=== PATIENT | female | born 1960 | race Caucasian/White ===

== ENCOUNTER 2020-11-20 10:49 | Observation (INO) ==
[2020-11-20] MEDS ORDERED: ALBUT/IPRATROP 3MG/0.5MG NEB 3 ML VIAL NEB ONE (11:26)
[2020-11-20] MEDS ORDERED: methylPREDNISolone 125 MG/2 ML VIAL IV STA (11:26)
[2020-11-20] MEDS ORDERED: NALOXONE HCL 0.4 MG/1 ML VIAL/CARP IV STA (11:26)
[2020-11-20] MEDS ORDERED: NALOXONE HCL 5 MG in 0.9 % SODIUM CHLORIDE 100 ML IV STA (11:49)
[2020-11-20] MEDS ORDERED: STAT IV Infusion **Titration per Protocol STA (12:05)
[2020-11-20] MEDS ORDERED: NALOXONE HCL 5 MG in 0.9 % SODIUM CHLORIDE 87.5 ML IV SCH ×2 (12:15→19:00)
[2020-11-20 12:16] LABS: Basophils # (auto) 0.03 K/uL (0-0.2); Basophils % (auto) 0.2 %; Eosinophils # (auto) 0.06 K/uL (0-0.5); Eosinophils % (auto) 0.3 %; Hemoglobin 15.3 g/dL (12.0-16.0); Immature Granulocytes # (auto) 0.05 K/uL (0.00-0.02); Immature Granulocytes % (auto) 0.3 %; Lymphocytes # (auto) 0.51 K/uL (1.2-3.4); Lymphocytes % (auto) 2.8 %; Mean Corpuscular Hemoglobin 30.5 pg (25-34); Mean Corpuscular Hgb Conc 32.6 g/dL (32-36); Mean Corpuscular Volume 93.8 fL (80-100); Mean Platelet Volume 11.3 fL (7.4-10.4); Monocytes % (auto) 6.6 %; Neutrophils # (auto) 16.32 K/uL (1.4-6.5); Neutrophils % (auto) 89.8 %; Platelet Count 292 K/uL (130-400); RDW Coefficient of Variation 15.2 % (11.5-14.5); RDW Standard Deviation 51.9 fL (36.4-46.3); Red Blood Count 5.01 M/uL (4.2-5.4); White Blood Count 18.17 K/uL (4.8-10.8)
--- NOTE | 2020-11-20 12:44 | XRay Report ---
SINGLE VIEW CHEST CLINICAL HISTORY: Atypical chest pain. FINDINGS: 2 AP, portable, upright chest radiographs are obtained. No prior studies are available for comparison at the time of dictation. The examination is degraded by portable technique and patient ro tation. The cardiomediastinal silhouette is unremarkable noting atherosclerotic calcification of the thoracic aorta. Patchy airspace consolidation is present at both lung bases, right greater than left . No large pleural effusion or pneumothorax is seen. The skeletal structures are osteopenic. The bony thorax is grossly intact. An intrathecal lead projects over the mid thoracic spine. IMPRESSION: There is bibasilar airspace consolidation, right greater than left. Correlate clinically for evidence of pneumonia/aspiration pneumonitis. Radiographic follow-up to resolution is recommended . ACT 112: Negative or not required by law. Electronically signed by: Fransisco Jarrett M.D. 11/20/2020 12:42 PM
[2020-11-20] MEDS ORDERED: NALOXONE HCL 0.4 MG/1 ML VIAL/CARP IV ONE (12:49)
[2020-11-20 12:56] LABS: Amphetamines+Metham, Urine Neg (Neg); Barbiturates, Urine Neg (Neg); Benzodiazepine, Urine Neg (Neg); Cocaine, Urine Neg (Neg); MDMA (Ecstacy), Urine Neg (Neg); Methadone, Urine Neg (Neg); Opiate, Urine Pos (Neg); Phencyclidine, Urine Neg (Neg)
[2020-11-20 13:40] LABS: Alanine Aminotransferase 43 U/L (12-78); Albumin Globulin Ratio 0.7 (0.9-2); Albumin Level 3.1 gm/dl (3.4-5.0); Alkaline Phosphatase 90 U/L (45-117); Aspartate Aminotransferase 162 U/L (15-37); BUN Creatinine Ratio 23.2 (10-20); Bilirubin,Total 0.4 mg/dl (0.2-1); Blood Urea Nitrogen 52 mg/dl (7-18); Calcium 8.8 mg/dl (8.5-10.1); Carbon Dioxide 25 mmol/L (21-32); Chloride 104 mmol/L (98-107); Creatinine Clr Calc Pharmacy 29.9 ml/min; Est GFR (African American) 26.7 ml/min; Globulin 4.5 gm/dl (2.5-4.0); Glucose 412 mg/dl (70-99); Lipase 140 U/L (73-393); Potassium 5.2 mmol/L (3.5-5.1); Sodium 138 mmol/L (136-145); Total Protein 7.6 gm/dl (6.4-8.2); Troponin I < 0.015 ng/ml (0-0.045)
[2020-11-20] MEDS ORDERED: SODIUM CHLORIDE 0.9% 1000ML 1,000 ML IV ONE (13:44)
[2020-11-20] MEDS ORDERED: NovoLIN-R INSULIN PER UNIT CHARGE IV STA (13:46)
[2020-11-20 13:54] LABS: Beta-Hydroxybutyrate 1.51 mg/dl (0.2-2.81)
--- NOTE | 2020-11-20 13:56 | Emergency Department Note ---
Impression & Plan Opioid overdose, Chronic pain, Type 2 diabetes mellitus with insulin therapy, Hyperkalemia, Multifocal pneumonia ED Provider Note NAME: DAMION FLORES AGE: 60 SEX: F : 1960 ARRIVES VIA: Ambulance INFORMANT: Patient, ED PROVIDER(S): Eric Lau MD CHIEF COMPLAINT: multiple falls, falling asleep HPI: This 60-year-old female who is in town visiting friends. Friends report yesterday they were concerned because [place] and kept falling [place] on benches. The patient was found next to a bed today. Patient's friends were again concerned that the patient was unable to wake up. EMS was summoned who brought the patient to the emergency department upon arrival to the emergency department patient is hypoxic and is satting 89% on room air. She is currently sleeping at the time of physical examination. The patient does wake up however immediately falls back to sleep. ROS: See above HPI for pertinent positives & negatives. A total of 10 systems reviewed and were otherwise negative. PAST MEDICAL HISTORY: See Below PAST SURGICAL HISTORY: See Below FAMILY HISTORY: See Below SOCIAL HISTORY: See Below HOME MEDICATIONS: See Below ALLERGIES: See Below VITALS: See Below PHYSICAL EXAMINATION: VITAL SIGNS - Vital signs and nursing notes were reviewed. GENERAL - 60-year-old female appearing stated age who is in moderate distress. Obtunded and belly breathing SKIN - Without rashes. HEAD - NC/AT. EYES - PERRL with EOMI bilaterally. Sclera anicteric. Palpebral conjunctiva pink and moist with no injection noted. EARS - No deformities of external structures noted on gross examination bilaterally. NOSE - Midline and without cyanosis. No epistaxis or purulent drainage noted. Septum midline without deviation or septal hematoma noted. MOUTH/OROPHARYNX - Without perioral cyanosis. Buccal mucosa pink and moist and without leukoplakia. Tongue midline with equal elevation of palate bilaterally. No tonsillar hypertrophy, erythema, or exudates noted. NECK - Neck with FROM. Supple to palpation. LUNGS - Chest wall symmetric without accessory muscle use, intercostals retractions, or central cyanosis. Normal vesicular breath sounds CTA B/L. No wheezes, rales, or rhonchi appreciated. CARDIAC - RRR with S1/S2. No murmur, rubs, or gallops appreciated. ABDOMEN - Abdominal contour without pulsations or visible masses. BS normoactive all four quadrants. No tenderness, palpable masses, hepatosplenomegaly, or ascites noted. EXTREMITIES - No clubbing or peripheral cyanosis. No pretibial edema present. +3/5 radial, posterior tibial, and dorsalis pedis pulses palpated throughout. +5/5 strength noted in UE/LE bilaterally. NEUROLOGIC - Cranial nerves II through XII grossly intact. Sensory intact to light touch throughout. Patellar reflexes +2/4. PSYCH - Pt awakens to painful stimuli but immediately falls back to sleep MEDICAL DECISION MAKING: Patient was seen and evaluated as above in room C1. Review was performed of nursing notes and vital signs. I did review pertinent previous visits and patient history. After obtaining a thorough history and physical examination the above work up was performed. This 60-year-old female who is on morphine for pain who presents to the emergency department obtunded. The patient is being worked up for narcolepsy however she immediately responded to Narcan. I do feel that the patient has somehow overdosed on her narcotics. She was placed on a Narcan drip because the patient continued to require oxygen. In addition she has an elevation in her glucose her potassium as well as her white blood cell count her creatinine is also elevated. She was given a normal saline bolus here as well as insulin and hour-long breathing treatment. I did discuss the case with the medicine service who did agree to meet the patient. An order was placed for continuous cardiac monitoring. The monitor shows a rate of 93 with Normal Sinus rhythm. The patient was evaluated during a period of high volume and high acuity during the global COVID-19 pandemic, and that diagnosis was suspected/considered upon their initial presentation. Their evaluation, treatment and testing was consistent with current guidelines for patients who present with complaints or symptoms that may be related to COVID-19. Patient was seen while provider was wearing PPE. Triage Nursing notes reviewed. Prior medical records reviewed Vital Signs: reviewed and remarkable for no significant abnormalities Differential diagnosis: Infection, dehydration, metabolic abnormality, hypo/hyperglycemia, electrolyte disturbance, anemia, hypoxia, cardiac sources, intracerebral event, toxicologic, neurologic, as well as other pathologies. ER treatment provided: See below Diagnostics interpreted by me: ECG: Ventricular paced rhythm QTC is 535 ventricular rate is now [address] elevation or depression no previous EKG to compare to Laboratory studies: As stated above and show below. Imaging studies: See below Consultation(s): Internal Medicine ED COURSE: Procedures: none PDMP:reviewed and no issues Critical Care: I have personally spent greater than 30 minutes of critical care time in the direct management of this patient. This includes bedside care, interpretation of diagnostic studies, and testing, discussion with consultants, patient, and family members, and other required patient management activities. This 30 minutes is in excess of all separately billable procedures. Past Med/Surg History Medical History (Updated 11/21/20 @ 18:39 by Eric Lau MD) CAD (coronary artery disease) Chronic pain GERD (gastroesophageal reflux disease) Type 2 diabetes mellitus with insulin therapy Social History Smoking Status: Unknown if ever smoked Tobacco Type: Cigarettes Hx Substance Use: Yes (unable at this time) Last Used Substance: Unknown Preferred Language: Slovak Communication Ability: Effective Current Living Situation: Alone How many Children do You have: 2 Assistive Devices: Denture - Upper and Denture - Lower Allergies Allergies Allergy/AdvReac Type Severity Reaction Status Date / Time Iodinated Contrast Media Allergy Severe shortness Unverified 11/20/20 13:43 of breath pistachio nut Allergy Severe shortness Unverified 11/20/20 13:43 of breath clarithromycin [From Biaxin] Allergy Verified 11/21/20 14:31 Home Meds Home Medications Medication Instructions Recorded Confirmed aspirin 81 mg tablet,delayed 81 mg PO QAM 11/20/20 11/20/20 release (Aspirin Low Dose) atorvastatin 80 mg tablet (Lipitor) 80 mg PO QAM 11/20/20 11/20/20 duloxetine 60 mg capsule,delayed 60 mg PO HS 11/20/20 11/20/20 release (Cymbalta) ergocalciferol (vitamin D2) 1,250 1,250 mcg PO WK 11/20/20 11/20/20 mcg (50,000 unit) capsule (Vitamin D2) gabapentin 800 mg tablet 800 mg PO TID 11/20/20 11/20/20 (Neurontin) glimepiride 4 mg tablet (Amaryl) 4 mg PO BID 11/20/20 11/20/20 insulin aspart U-100 100 unit/mL 1 sliding scale dose SUBCUT 11/20/20 11/20/20 subcutaneous cartridge (Novolog USEASDIRECTD PenFill U-100 Insulin aspart) isosorbide mononitrate 30 mg 30 mg PO HS 11/20/20 11/20/20 tablet,extended release 24 hr lisinopril 2.5 mg tablet (Zestril) 2.5 mg PO HS 11/20/20 11/20/20 magnesium oxide 400 mg PO HS 11/20/20 11/20/20 metoprolol succinate 50 mg 50 mg PO QAM 11/20/20 11/20/20 tablet,extended release 24 hr (Toprol XL) morphine 15 mg immediate release See Rx Instructions .ROUTE .COMPLEX 11/20/20 11/20/20 tablet morphine 15 mg tablet,extended See Rx Instructions .ROUTE .COMPLEX 11/20/20 11/20/20 release (MS Contin) pantoprazole 40 mg tablet,delayed 40 mg PO BID 11/20/20 11/20/20 release (Protonix) potassium chloride 10 mEq 10 meq PO QAM 11/20/20 11/20/20 capsule,extended release torsemide 20 mg tablet 20 mg PO DAILY PRN 11/20/20 11/20/20 Previous Rx's Medication Instructions Recorded doxycycline hyclate 100 mg capsule 100 mg PO BID 14 Days #28 cap 11/21/20 Results & Data (ED) Vital Signs Vital Signs - 24 hr 11/20/20 11:00 11/20/20 11:04 11/20/20 11:30 Temperature 37.0 C Temperature Source Oral Pulse Rate 92 H 91 H 92 H Pulse Rate [Right Finger] Pulse Rate from SpO2 Sensor 91 H 92 H Respiratory Rate 18 16 15 Respiratory Effort / Characteristics Blood Pressure 163/76 H 163/76 H 162/102 H Blood Pressure Mean 105 105 122 Pulse Oximetry 93 82 L 93 Oxygen Delivery Method Room Air Oxygen Flow Rate Sepsis Recent Fever Within 48 Hours No Sepsis New/Unexplained Change in Mental Status N/A Sepsis Action Taken by Nursing No Action Required 11/20/20 11:49 11/20/20 12:00 11/20/20 12:22 Temperature Temperature Source Pulse Rate 98 H 91 H Pulse Rate [Right Finger] 93 H Pulse Rate from SpO2 Sensor 91 H Respiratory Rate 21 25 H 25 H Respiratory Effort / Characteristics Spontaneous Blood Pressure 180/99 H Blood Pressure Mean 126 Pulse Oximetry 96 95 89 L Oxygen Delivery Method Nasal Cannula Room Air Oxygen Flow Rate 2 Sepsis Recent Fever Within 48 Hours Sepsis New/Unexplained Change in Mental Status Sepsis Action Taken by [facility] Medications Current Medication List: was personally reviewed by Laboratory Data Attestation: I reviewed the patient's lab results. Result diagrams: 11/21/20 07:49 11/21/20 07:49 Lab Results 11/20/20 11/20/20 11/20/20 Range/Units 11:58 11:58 11:58 WBC 18.17 H (4.8-10.8) K/uL RBC 5.01 (4.2-5.4) M/uL Hgb 15.3 (12.0-16.0) g/dL Hct 47.0 (37-47) % MCV 93.8 (80-100) fL MCH 30.5 (25-34) pg MCHC 32.6 (32-36) g/dL RDW Std Deviation 51.9 H (36.4-46.3) fL RDW Coeff of Jairo 15.2 H (11.5-14.5) % Plt Count 292 (130-400) K/uL MPV 11.3 H (7.4-10.4) fL Immature Gran % (Auto) 0.3 % Neut % (Auto) 89.8 % Lymph % (Auto) 2.8 % [place] % (Auto) 6.6 % Eos % (Auto) 0.3 % Baso % (Auto) 0.2 % Neut # (Auto) 16.32 H (1.4-6.5) K/uL Lymph # (Auto) 0.51 L (1.2-3.4) K/uL [place] # (Auto) 1.20 H (0.11-0.59) K/uL Eos # (Auto) 0.06 (0-0.5) K/uL Baso # (Auto) 0.03 (0-0.2) K/uL Immature Gran # (Auto) 0.05 H (0.00-0.02) K/uL APTT Cancelled PTT Ratio Cancelled VBG pH (7.36-7.41) VBG pCO2 (38-50) mmHg VBG pO2 mmHg VBG HCO3 mmol/L VBG O2 Saturation % VBG Base Excess mEq/L Barometric Pressure mm/Hg Sodium 138 (136-145) mmol/L Potassium 5.2 H (3.5-5.1) mmol/L Chloride 104 (98-107) mmol/L Carbon Dioxide 25 (21-32) mmol/L Anion Gap 9.0 (3-11) BUN 52 H (7-18) mg/dl Creatinine 2.23 H (0.6-1.2) mg/dl Est Cr Clr Drug Dosing 29.9 ml/min Est GFR ( Amer) 26.7 ml/min Est GFR (Non-Af Amer) 23.0 ml/min BUN/Creatinine Ratio 23.2 H (10-20) Glucose 412 H* (70-99) mg/dl Calcium 8.8 (8.5-10.1) mg/dl Total Bilirubin 0.4 (0.2-1) mg/dl AST 162 H (15-37) U/L ALT 43 (12-78) U/L Alkaline Phosphatase 90 (45-117) U/L Troponin I < 0.015 (0-0.045) ng/ml Total Protein 7.6 (6.4-8.2) gm/dl Albumin 3.1 L (3.4-5.0) gm/dl Globulin 4.5 H (2.5-4.0) gm/dl Albumin/Globulin Ratio 0.7 L (0.9-2) Lipase 140 (73-393) U/L Beta-Hydroxybutyric Acd 1.51 (0.2-2.81) mg/dl Urine Color Urine Appearance (Clear) Urine pH (4.5-7.5) Ur Specific [place] (1.000-1.030) Urine Protein (Negative) Urine Glucose (UA) (Negative) Urine Ketones (Negative) Urine Blood (Negative) Urine Nitrite (Negative) Urine Bilirubin (Negative) Urine Urobilinogen (Negative) Ur Leukocyte Esterase (Negative) Urine WBC (Auto) (0-5) /hpf Urine RBC (Auto) (0-4) /hpf U Hyaline Cast (Auto) (0-5) /lpf U Epithel Cells (Auto) (0-5) /lpf Urine Bacteria (Auto) (Negative) Urine Yeast (None Prsent) Urine Opiates Screen (Neg) Ur Methadone, Qual (Neg) Urine Barbiturates (Neg) Ur Phencyclidine (PCP) (Neg) U Amphetamin/Meth Scrn (Neg) MDMA (Ecstasy) Screen (Neg) U Benzodiazepines Scrn (Neg) Ur Cocaine Metabolite (Neg) U Marijuana (THC) Screen (Neg) Ethyl Alcohol mg/dL (0-3) mg/dl COVID-19 Eval Order SARS-CoV-2 (PCR) (Negative) Bld Cult Staph aureus PCR (Negative) Blood Culture MRSA PCR (Negative) 11/20/20 11/20/20 11/20/20 Range/Units 12:00 12:00 12:23 WBC (4.8-10.8) K/uL RBC (4.2-5.4) M/uL Hgb (12.0-16.0) g/dL Hct (37-47) % MCV (80-100) fL MCH (25-34) pg MCHC (32-36) g/dL RDW Std Deviation (36.4-46.3) fL RDW Coeff of Jairo (11.5-14.5) % Plt Count (130-400) K/uL MPV (7.4-10.4) fL Immature Gran % (Auto) % Neut % (Auto) % Lymph % (Auto) % [place] % (Auto) % Eos % (Auto) % Baso % (Auto) % Neut # (Auto) (1.4-6.5) K/uL Lymph # (Auto) (1.2-3.4) K/uL [place] # (Auto) (0.11-0.59) K/uL Eos # (Auto) (0-0.5) K/uL Baso # (Auto) (0-0.2) K/uL Immature Gran # (Auto) (0.00-0.02) K/uL APTT PTT Ratio VBG pH (7.36-7.41) VBG pCO2 (38-50) mmHg VBG pO2 mmHg VBG HCO3 mmol/L VBG O2 Saturation % VBG Base Excess mEq/L Barometric Pressure mm/Hg Sodium (136-145) mmol/L Potassium (3.5-5.1) mmol/L Chloride (98-107) mmol/L Carbon Dioxide (21-32) mmol/L Anion Gap (3-11) BUN (7-18) mg/dl Creatinine (0.6-1.2) mg/dl Est Cr Clr Drug Dosing ml/min Est GFR ( Amer) ml/min Est GFR (Non-Af Amer) ml/min BUN/Creatinine Ratio (10-20) Glucose (70-99) mg/dl Calcium (8.5-10.1) mg/dl Total Bilirubin (0.2-1) mg/dl AST (15-37) U/L ALT (12-78) U/L Alkaline Phosphatase (45-117) U/L Troponin I (0-0.045) ng/ml Total Protein (6.4-8.2) gm/dl Albumin (3.4-5.0) gm/dl Globulin (2.5-4.0) gm/dl Albumin/Globulin Ratio (0.9-2) Lipase (73-393) U/L Beta-Hydroxybutyric Acd (0.2-2.81) mg/dl Urine Color Urine Appearance (Clear) Urine pH (4.5-7.5) Ur Specific [place] (1.000-1.030) Urine Protein (Negative) Urine Glucose (UA) (Negative) Urine Ketones (Negative) Urine Blood (Negative) Urine Nitrite (Negative) Urine Bilirubin (Negative) Urine Urobilinogen (Negative) Ur Leukocyte Esterase (Negative) Urine WBC (Auto) (0-5) /hpf Urine RBC (Auto) (0-4) /hpf U Hyaline Cast (Auto) (0-5) /lpf U Epithel Cells (Auto) (0-5) /lpf Urine Bacteria (Auto) (Negative) Urine Yeast (None Prsent) Urine Opiates Screen (Neg) Ur Methadone, Qual (Neg) Urine Barbiturates (Neg) Ur Phencyclidine (PCP) (Neg) U Amphetamin/Meth Scrn (Neg) MDMA (Ecstasy) Screen (Neg) U Benzodiazepines Scrn (Neg) Ur Cocaine Metabolite (Neg) U Marijuana (THC) Screen (Neg) Ethyl Alcohol mg/dL < 3.0 (0-3) mg/dl COVID-19 Eval Order Covid19 at [facility] SARS-CoV-2 (PCR) NEGATIVE (Negative) Bld Cult Staph aureus PCR (Negative) Blood Culture MRSA PCR (Negative) 11/20/20 11/20/20 11/20/20 Range/Units 12:23 12:23 15:33 WBC (4.8-10.8) K/uL RBC (4.2-5.4) M/uL Hgb (12.0-16.0) g/dL Hct (37-47) % MCV (80-100) fL MCH (25-34) pg MCHC (32-36) g/dL RDW Std Deviation (36.4-46.3) fL RDW Coeff of Jairo (11.5-14.5) % Plt Count (130-400) K/uL MPV (7.4-10.4) fL Immature Gran % (Auto) % Neut % (Auto) % Lymph % (Auto) % [place]t % (Auto) % Eos % (Auto) % Baso % (Auto) % Neut # (Auto) (1.4-6.5) K/uL Lymph # (Auto) (1.2-3.4) K/uL [place] # (Auto) (0.11-0.59) K/uL Eos # (Auto) (0-0.5) K/uL Baso # (Auto) (0-0.2) K/uL Immature Gran # (Auto) (0.00-0.02) K/uL APTT PTT Ratio VBG pH 7.26 L (7.36-7.41) VBG pCO2 56 H (38-50) mmHg VBG pO2 41 mmHg VBG HCO3 25 mmol/L VBG O2 Saturation 72.6 % VBG Base Excess -3.5 mEq/L Barometric Pressure 729.9 mm/Hg Sodium (136-145) mmol/L Potassium (3.5-5.1) mmol/L Chloride (98-107) mmol/L Carbon Dioxide (21-32) mmol/L Anion Gap (3-11) BUN (7-18) mg/dl Creatinine (0.6-1.2) mg/dl Est Cr Clr Drug Dosing ml/min Est GFR ( Amer) ml/min Est GFR (Non-Af Amer) ml/min BUN/Creatinine Ratio (10-20) Glucose (70-99) mg/dl Calcium (8.5-10.1) mg/dl Total Bilirubin (0.2-1) mg/dl AST (15-37) U/L ALT (12-78) U/L Alkaline Phosphatase (45-117) U/L Troponin I (0-0.045) ng/ml Total Protein (6.4-8.2) gm/dl Albumin (3.4-5.0) gm/dl Globulin (2.5-4.0) gm/dl Albumin/Globulin Ratio (0.9-2) Lipase (73-393) U/L Beta-Hydroxybutyric Acd (0.2-2.81) mg/dl Urine Color Yellow Urine Appearance Clear (Clear) Urine pH 5.0 (4.5-7.5) Ur Specific [place] 1.019 (1.000-1.030) Urine Protein 1+ H (Negative) Urine Glucose (UA) 3+ H (Negative) Urine Ketones Negative (Negative) Urine Blood 3+ H (Negative) Urine Nitrite Negative (Negative) Urine Bilirubin Negative (Negative) Urine Urobilinogen Negative (Negative) Ur Leukocyte Esterase Negative (Negative) Urine WBC (Auto) 1-5 (0-5) /hpf Urine RBC (Auto) 0-4 (0-4) /hpf U Hyaline Cast (Auto) 1-5 (0-5) /lpf U Epithel Cells (Auto) >30 H (0-5) /lpf Urine Bacteria (Auto) Negative (Negative) Urine Yeast Budding A (None Prsent) Urine Opiates Screen Pos H (Neg) Ur Methadone, Qual Neg (Neg) Urine Barbiturates Neg (Neg) Ur Phencyclidine (PCP) Neg (Neg) U Amphetamin/Meth Scrn Neg (Neg) MDMA (Ecstasy) Screen Neg (Neg) U Benzodiazepines Scrn Neg (Neg) Ur Cocaine Metabolite Neg (Neg) U Marijuana (THC) Screen Neg (Neg) Ethyl Alcohol mg/dL (0-3) mg/dl COVID-19 Eval Order SARS-CoV-2 (PCR) (Negative) Bld Cult Staph aureus PCR (Negative) Blood Culture MRSA PCR (Negative) 11/20/20 Range/Units 15:33 WBC (4.8-10.8) K/uL RBC (4.2-5.4) M/uL Hgb (12.0-16.0) g/dL Hct (37-47) % MCV (80-100) fL MCH (25-34) pg MCHC (32-36) g/dL RDW Std Deviation (36.4-46.3) fL RDW Coeff of Jairo (11.5-14.5) % Plt Count (130-400) K/uL MPV (7.4-10.4) fL Immature Gran % (Auto) % Neut % (Auto) % Lymph % (Auto) % [place] % (Auto) % Eos % (Auto) % Baso % (Auto) % Neut # (Auto) (1.4-6.5) K/uL Lymph # (Auto) (1.2-3.4) K/uL [place] # (Auto) (0.11-0.59) K/uL Eos # (Auto) (0-0.5) K/uL Baso # (Auto) (0-0.2) K/uL Immature Gran # (Auto) (0.00-0.02) K/uL APTT PTT Ratio VBG pH (7.36-7.41) VBG pCO2 (38-50) mmHg VBG pO2 mmHg VBG HCO3 mmol/L VBG O2 Saturation % VBG Base Excess mEq/L Barometric Pressure mm/Hg Sodium (136-145) mmol/L Potassium (3.5-5.1) mmol/L Chloride (98-107) mmol/L Carbon Dioxide (21-32) mmol/L Anion Gap (3-11) BUN (7-18) mg/dl Creatinine (0.6-1.2) mg/dl Est Cr Clr Drug Dosing ml/min Est GFR ( Amer) ml/min Est GFR (Non-Af Amer) ml/min BUN/Creatinine Ratio (10-20) Glucose (70-99) mg/dl Calcium (8.5-10.1) mg/dl Total Bilirubin (0.2-1) mg/dl AST (15-37) U/L ALT (12-78) U/L Alkaline Phosphatase (45-117) U/L Troponin I (0-0.045) ng/ml Total Protein (6.4-8.2) gm/dl Albumin (3.4-5.0) gm/dl Globulin (2.5-4.0) gm/dl Albumin/Globulin Ratio (0.9-2) Lipase (73-393) U/L Beta-Hydroxybutyric Acd (0.2-2.81) mg/dl Urine Color Urine Appearance (Clear) Urine pH (4.5-7.5) Ur Specific [place] (1.000-1.030) Urine Protein (Negative) Urine Glucose (UA) (Negative) Urine Ketones (Negative) Urine Blood (Negative) Urine Nitrite (Negative) Urine Bilirubin (Negative) Urine Urobilinogen (Negative) Ur Leukocyte Esterase (Negative) Urine WBC (Auto) (0-5) /hpf Urine RBC (Auto) (0-4) /hpf U Hyaline Cast (Auto) (0-5) /lpf U Epithel Cells (Auto) (0-5) /lpf Urine Bacteria (Auto) (Negative) Urine Yeast (None Prsent) Urine Opiates Screen (Neg) Ur Methadone, Qual (Neg) Urine Barbiturates (Neg) Ur Phencyclidine (PCP) (Neg) U Amphetamin/Meth Scrn (Neg) MDMA (Ecstasy) Screen (Neg) U Benzodiazepines Scrn (Neg) Ur Cocaine Metabolite (Neg) U Marijuana (THC) Screen (Neg) Ethyl Alcohol mg/dL (0-3) mg/dl COVID-19 Eval Order SARS-CoV-2 (PCR) (Negative) Bld Cult Staph aureus PCR Negative (Negative) Blood Culture MRSA PCR Negative (Negative) Administered Medications Discontinued Medications Albuterol (Albut/Ipratrop 3mg/0.5mg Neb 3 Ml Vial) 12 ml NEB ONE ONE Stop: 11/20/20 11:27 Last Admin: 11/20/20 12:22 Dose: 12 ml Documented by: [id number] Atorvastatin Calcium (Atorvastatin 40 Mg Tab) 80 mg PO QAM [facility] Stop: 12/21/20 08:59 Last Admin: 11/21/20 08:41 Dose: 80 mg Documented by: [id number] Doxycycline Hyclate (Doxycycline Hyclate 100 Mg Cap) 100 mg PO NOW STA Stop: 11/21/20 15:12 Last Admin: 11/21/20 15:36 Dose: 100 mg Documented by: [id number] Duloxetine HCl (Duloxetine Hcl 60 Mg Cap) 60 mg PO HS [facility] Stop: 12/20/20 20:59 Last Admin: 11/20/20 21:17 Dose: Not Given Documented by: [id number] Gabapentin (Gabapentin 800 Mg Tab) 800 mg PO TID [facility] Stop: 12/21/20 13:59 Last Admin: 11/21/20 15:36 Dose: 800 mg Documented by: [id number] Admin: 11/21/20 10:10 Dose: 800 mg Documented by: [id number] Heparin Sodium (Porcine) (Heparin Sod 5,000 Unit/0.5 Ml Vial) 5,000 units SQ Q12 [facility] Stop: 12/20/20 20:59 Last Admin: 11/21/20 08:41 Dose: 5,000 units Documented by: [id number] Admin: 11/20/20 21:24 Dose: 5,000 units Documented by: [id number] Naloxone HCl 5 mg/ Sodium (Chloride) 100 mls @ 2.6 mls/hr IV .Q24H [facility]; Protocol Stop: 12/20/20 12:14 Last Titration: 11/20/20 18:37 Dose: 0 mg/hr, 0 mls/hr Documented by: [id number] Admin: 11/20/20 12:41 Dose: 0.13 mg/hr, 2.6 mls/hr Documented by: [id number] Cosigned by: [id number] Sodium Chloride (Nss 1000ml) 1,000 mls @ 999 mls/hr IV .Q1H1M ONE Stop: 11/20/20 14:44 Last Infusion: 11/20/20 15:45 Dose: 0 mls/hr Documented by: [id number] Admin: 11/20/20 13:56 Dose: 999 mls/hr Documented by: [id number] Levofloxacin/Dextrose (Levaquin/D5w) 750 mg in 150 mls @ 100 mls/hr IV NOW STA Stop: 11/20/20 16:34 Last Infusion: 11/20/20 18:33 Dose: 0 mls/hr Documented by: [id number] Admin: 11/20/20 16:07 Dose: 100 mls/hr Documented by: [id number] Piperacillin Sod/Tazobactam Sod (Zosyn) 4.5 gm in 120 mls @ 240 mls/hr IV NOW ONE Stop: 11/20/20 15:35 Last Infusion: 11/20/20 16:06 Dose: 0 mls/hr Documented by: [id number] Admin: 11/20/20 15:45 Dose: 240 mls/hr Documented by: [id number] Sodium Chloride (Nss 1000ml) 1,000 mls @ 120 mls/hr IV .Q8H20M [facility] Stop: 12/20/20 17:54 Last Admin: 11/21/20 10:47 Dose: 120 mls/hr Documented by: [id number] Infusion: 11/21/20 10:47 Dose: 120 mls/hr Documented by: [id number] Admin: 11/21/20 02:48 Dose: 120 mls/hr Documented by: [id number] Infusion: 11/21/20 02:48 Dose: 120 mls/hr Documented by: [id number] Admin: 11/20/20 18:42 Dose: 120 mls/hr Documented by: [id number] Piperacillin Sod/Tazobactam (Sod 3.375 gm/ Dextrose) 115 mls @ 28.75 mls/hr IV Q8H [facility]; Protocol Stop: 11/27/20 20:59 Last Admin: 11/21/20 13:23 Dose: 28.8 mls/hr Documented by: [id number] Infusion: 11/21/20 08:42 Dose: 0 mls/hr Documented by: [id number] Admin: 11/21/20 04:34 Dose: 28.8 mls/hr Documented by: [id number] Infusion: 11/21/20 00:41 Dose: 0 mls/hr Documented by: [id number] Admin: 11/20/20 21:22 Dose: 28.8 mls/hr Documented by: [id number] Insulin Human Regular 10 units (/ Syringe) 10 mls @ 5 mls/min IV ONE ONE Stop: 11/20/20 19:01 Last Admin: 11/20/20 19:46 Dose: 5 mls/min Documented by: [id number] Cosigned by: [id number] Naloxone HCl 5 mg/ Sodium (Chloride) 100 mls @ 0 mls/hr IV .Q0M [facility]; Protocol Stop: 12/20/20 18:59 Last Titration: 11/20/20 21:17 Dose: 0 mg/hr, 0 mls/hr Documented by: [id number] Admin: 11/20/20 18:00 Dose: 0.13 mg/hr, 2.6 mls/hr Documented by: [id number] Cosigned by: [id number] Insulin Human Regular 250 (units/ Sodium Chloride) 250 mls @ 1.7 mls/hr IV .Q24H [facility]; Protocol Stop: 12/20/20 21:29 Last Titration: 11/21/20 11:21 Dose: 0 units/hr, 0 mls/hr Documented by: [id number] Cosigned by: [id number] Titration: 11/21/20 07:12 Dose: 1.7 units/hr, 1.7 mls/hr Documented by: [id number] Cosigned by: [id number] Titration: 11/21/20 06:04 Dose: 2.1 units/hr, 2.1 mls/hr Documented by: [id number] Cosigned by: [id number] Titration: 11/21/20 05:07 Dose: 2.6 units/hr, 2.6 mls/hr Documented by: [id number] Cosigned by: [id number] Titration: 11/21/20 04:10 Dose: 3.3 units/hr, 3.3 mls/hr Documented by: [id number] Cosigned by: [id number] Titration: 11/21/20 03:24 Dose: 4.1 units/hr, 4.1 mls/hr Documented by: [id number] Cosigned by: [id number] Titration: 11/21/20 02:55 Dose: 0 units/hr, 0 mls/hr Documented by: [id number] Cosigned by: [id number] Titration: 11/21/20 02:02 Dose: 6.9 units/hr, 6.9 mls/hr Documented by: [id number] Cosigned by: [id number] Titration: 11/21/20 00:58 Dose: 8.6 units/hr, 8.6 mls/hr Documented by: [id number] Cosigned by: [id number] Titration: 11/21/20 00:21 Dose: 7.2 units/hr, 7.2 mls/hr Documented by: [id number] Cosigned by: [id number] Titration: 11/20/20 23:04 Dose: 6 units/hr, 6 mls/hr Documented by: [id number] Cosigned by: [id number] Admin: 11/20/20 21:47 Dose: 5 units/hr, 5 mls/hr Documented by: [id number] Cosigned by: [id number] Insulin Aspart (Insulin Aspart 100 Units/Ml 3 Ml Pen) 0 units SC ACHS [facility] Stop: 12/20/20 17:54 Last Admin: 11/20/20 21:31 Dose: Not Given Documented by: [id number] Insulin Aspart (Insulin Aspart 100 Units/Ml 3 Ml Pen) 0 units SC ACHS [facility] Stop: 12/20/20 20:59 Last Admin: 11/21/20 08:38 Dose: Not Given Documented by: [id number] Cosigned by: [id number] Admin: 11/20/20 21:57 Dose: Not Given Documented by: [id number] Insulin Aspart (Insulin Aspart 100 Units/Ml 3 Ml Pen) 0 units SC ACHS [facility] Stop: 12/21/20 11:29 Last Admin: 11/21/20 17:03 Dose: 4 units Documented by: [id number] Cosigned by: [id number] Admin: 11/21/20 13:19 Dose: 300 units Documented by: [id number] Cosigned by: [id number] Insulin Glargine (Insulin Glargine Solostar 100 Units/Ml 3 Ml Pen) 18 units SC QAM [facility] Stop: 12/21/20 07:59 Last Admin: 11/21/20 08:39 Dose: 18 units Documented by: [id number] Cosigned by: [id number] Insulin Human Regular (Novolin-R Insulin Per Unit Charge) 10 units IV NOW STA Stop: 11/20/20 13:47 Last Admin: 11/20/20 13:49 Dose: 10 units Documented by: [id number] Cosigned by: [id number] Isosorbide Mononitrate (Isosorbide Routt Extended Rel 30 Mg Tabcr) 30 mg PO HS [facility] Stop: 12/20/20 20:59 Last Admin: 11/20/20 21:21 Dose: 30 mg Documented by: [id number] Magnesium Oxide (Magnesium Oxide 400 Mg Tab) 400 mg PO [facility] Stop: 12/20/20 20:59 Last Admin: 11/20/20 21:21 Dose: 400 mg Documented by: [id number] Methylprednisolone (Methylprednisolone 125 Mg/2 Ml Vial) 125 mg IV NOW STA Stop: 11/20/20 11:27 Last Admin: 11/20/20 11:49 Dose: 125 mg Documented by: [id number] Metoprolol Succinate (Metoprolol Succ 50mg Ext Rel Tab) 50 mg [place] Stop: 12/21/20 08:59 Last Admin: 11/21/20 08:43 Dose: 50 mg Documented by: [id number] Morphine Sulfate (Morphine Sulfate Cr 15 Mg Tabcr) 15 mg PO Q12 [facility] Stop: 12/05/20 09:29 Last Admin: 11/21/20 09:25 Dose: 15 mg Documented by: [id number] Naloxone HCl (Naloxone Hcl 0.4 Mg/1 Ml Vial/Carp) 0.2 mg IV NOW STA Stop: 11/20/20 11:27 Last Admin: 11/20/20 11:49 Dose: 0.2 mg Documented by: [id number] Naloxone HCl (Naloxone Hcl 0.4 Mg/1 Ml Vial/Carp) 0.1 mg IV .15 MINUTES AFTER.. ONE Stop: 11/20/20 12:50 Last Admin: 11/20/20 12:57 Dose: 0.1 mg Documented by: [id number] Pantoprazole Sodium (Pantoprazole 40 Mg Tab) 40 mg PO BID [facility] Stop: 12/20/20 20:59 Last Admin: 11/21/20 08:41 Dose: 40 mg Documented by: [id number] Admin: 11/20/20 21:22 Dose: 40 mg Documented by: [id number] Potassium Chloride (Potassium Chloride 10 Meq Tabcr) 10 meq PO QAM [facility] Stop: 12/21/20 08:59 Last Admin: 11/21/20 08:40 Dose: 10 meq Documented by: [id number] Imaging Data Radiologist's Impression: Chest X-Ray 11/20/20 11:26 SINGLE VIEW CHEST CLINICAL HISTORY: Atypical chest pain. FINDINGS: 2 AP, portable, upright chest radiographs are obtained. No prior studies are available for comparison at the time of dictation. The examination is degraded by portable technique and patient rotation. The cardiomediastinal silhouette is unremarkable noting atherosclerotic calcification of the thoracic aorta. Patchy airspace consolidation is present at both lung bases, right greater than left. No large pleural effusion or pneumothorax is seen. The skeletal structures are osteopenic. The bony thorax is grossly intact. An intrathecal lead projects over the mid thoracic spine. IMPRESSION: There is bibasilar airspace consolidation, right greater than left. Correlate clinically for evidence of pneumonia/aspiration pneumonitis. Radiographic follow-up to resolution is recommended. ACT 112: Negative or not required by law. Electronically signed by: Fransisco Jarrett M.D. 11/20/2020 12:42 PM Discharge Plan Visit Data Chief Complaint: Fall Stated Complaint: Fall ED Provider: Eric Lau Discharge Problem: Opioid overdose, Chronic pain, Type 2 diabetes mellitus with insulin therapy, Hyperkalemia, Multifocal pneumonia Patient Disposition: Admitted As Inpatient Discharge Instructions Interventions: ED Discharge Assessment Last Done: 11/20/20 17:20 Discharge Problem: Opioid overdose Qualifiers: Encounter type: initial encounter Injury intent: undetermined intent Qualified Code(s): T40.2X4A - Poisoning by other opioids, undetermined, initial encounter Chronic pain Qualifiers: Chronic pain type: other chronic pain Qualified Code(s): G89.29 - Other chronic pain
--- NOTE | 2020-11-20 14:27 | History & Physical Report ---
Date of Service November 20, 2020 Assessment & Plan (1) Altered mental status: Plan: Laura Link is a 60yo F with a PMHx of CAD, HLD, chronic back pain with chronic narcotic tx and implanted back stimulator, insulin depenent DM2, GERD who presents to the ER due to increased somnolence and repeatedly falling asleep in public. By report she has a hx of chronic back pain with stimulator and on home morphine. She was given narcan and placed on a narcan drip in the ER with improvement in her somnolence. Altered Mental Status/Somnolence 2/2 Accidental Narcotic Overdose +/- metabolic encephalopathy of aspiration pneumonia Patient admitted to hospital with reports of multiple falls, falling asleep on benches. H&P limited by extreme somnolence and reduced negative status during exam Medication reconciliation obtained from med Hx external review, some discrepanc ies with patient reported with waxing and waning mental status while on Narcan drip Morphine, gabapentin held doses as noted under back pain - CT-H: There is no hemorrhage, mass effect, or evidence of acute territorial ischemia by CT criteria. Paranasal sinus disease. Small left frontal scalp contusion. - CT-Spine: There is no evidence of fracture or subluxation involving the cervical spine.There is no evidence of fracture or malalignment involving the thoracic spine. There is no evidence of fracture or malalignment involving the lumbar spine. VBG with respiratory acidosis. NIPPV placed Gabapentin level pending Hyperglycemia managed as otherwise noted Ammonia pending, no signs of liver disease on CT, AST elevated Urine tox screen positive for opiates, screen otherwise negative pending confirmatory send out Continue Narcan drip, titrate for respiration protocol. Continue to monitor end-tidal CO2 We will reassess patient for narcotic withdrawal and starting reduced dose of opioids as clinical/cognitive status improves. Given TDD of greater than 50 morphine equivalents daily anticipate baseline tolerance/dependence P.o. meds have been continued 11/21, check for improved mentation and safe swallow prior to given. Temporary n.p.o. order placed. Aspiration precautions (2) CAD (coronary artery disease): Plan: CAD Clarify cardiac history once cognitive status improves. Based of hx of plaavix tx suspect hx PCI - EKG poor quality, repeat pending. - Lisinopril held for BRIGITTE - Continue MTP succinte 50mg qAM - ASA 81mg daily - Continue isosorbide mononitrate 30mg PO qHS Continue statin (3) Multifocal pneumonia: Plan: ?Aspiration PNA - Leukocytosis to 18 on admit - COVID negative, afebrile - CXR: There is bibasilar airspace consolidation, right greater than left. Correlate clinically for evidence of pneumonia/aspiration pneumonitis. Radiographic follow-up to resolution is recommended. - CT-C: There is multifocal patchy/nodular airspace consolidation as detailed above, typical in appearance for multifocal pneumonia. There is no acute posttraumatic intrathoracic abnormality. Clinical correlation will be required and radiographic follow-up to resolution is recommended. Given the nodular appearance, a follow-up chest CT in 3 months time is also recommended for reassessment.There is no pleural effusion or pneumothorax.Cardiomegaly and emphysema. - Lactate pending - Empiric Zosyn and Levaquin in ED. Continue Zosyn for Pseudomonas and anaerobic coverage, MRSA nare pending. If positive add doxycycline for MRSA coverage. - Sputum culture pending (4) Chronic pain: Plan: Chronic Back Pain w/ Implantable Stimulator - [employer] pt takes Morphine ER 15mg 1 tab AM and 2 tabs PM with an additional Morphine 15mg IR 1-2 tabs daily. No benzodiazepines. -Patient somnolent on exam, unable to assess pain at time of HPI - Continue [employer] duloxetine 60mg qHS -Hold gabapentin 800mg PO TID (5) GERD (gastroesophageal reflux disease): Plan: GERD - Protonix 40mg BID [employer] (6) Type 2 diabetes mellitus with insulin therapy: Plan: DM2 - Hyperglycemic to 412 on admit, received NSS bolus and 10u IV insulin regular --> decreased to [] - Hold home glimepiride. Pt on SSI aspart [employer]. Converted to weight based basal- bolus as below - Goal range 100-140 - Glucose checks AC/HS - Basal-bolus, lantus 9u BID, CF 45, Ratio 16 - BMP daily (7) Hyperkalemia: Plan: Hyperkalemia - Insulin regular 10 units IV given for hyperglycemia - NSS 1L bolus given in ER - IVFM 120 cc/h NSS - BMP recheck 4hrs, daily (8) Elevated AST (SGOT): Plan: Elevated AST - ALT normal - AlkPhos normal - CT-Ab/P:There is no evidence of solid organ injury in the abdomen or pelvis on this unenhanced examination. Bladder distention. There is an approximately 10 cm segment of underdistention versus mildly thick-walled ascending colon. Underdistention is favored an clinical correlation will be required. If warranted this could be further assessed with endoscopy on a nonemergent basis. - EtoH negative on admit Plan: DVT PPx: Heparin SQ Q12 Diet: DM/HH once able to swallow safetly. NPO on admit for AMS Dispo: PCU CODE STATUS: Full Code, pt assesnts but limited by sedation on HPI. Unable to reach family members for collateral at time of admission. History of Present Illness Chief Complaint: Falls, AMS Primary Care Provider: NO PCP Laura Link is a 60yo F with a PMHx of CAD, HLD, chronic back pain with chronic narcotic tx and implanted back stimulator, insulin depenent DM2, GERD who presents to the ER due to increased somnolence and repeatedly falling asleep in public. Pt is from out of visiting relatives. She has a hx of chronic back pain with stimulator and on home morphine. She was given narcan and placed on a narcan drip in the ER with improvement in her somnolence. Per pharmacy and external records review: [employer] pt takes Morphine ER 15mg 1 tab AM and 2 tabs PM with an additional Morphine 15mg IR 1-2 tabs daily. No benzodiazepines. Pt also on gabapentin 800mg TID PO and duloxetine 60mg qHS. History extremely limited by sedation/cognitive status Patient is seen at the bedside, has had a waxing and waning cognitive status while in the emergency department. At time of provider assessment patient opens eyes transiently to vigorous shaking and sternal rub, gives grunting answers to questions and is able to verbalize her son is "Ludwin "before falling back asleep. Respirations 19, normal end-tidal CO2. She is on a Narcan drip titrated to respiration. Patient was not able to give phone number for her son Ludwin. When asked if it was okay to call her sister who is listed as her primary contact she replies "okay "before falling at sleep, sister kirill phone rang without answer, no voicemail available. By report patient is from [place] and is visiting friends/family. She was reportedly falling asleep on benches with multiple falls causing her to be brought to the emergency department by emergency medical services. No family/friends at bedside for collateral. While in the emergency department she was given Narcan with improved mentation and then placed on a Narcan drip titrated to respiratory status. She received insulin for hyperglycemia, and a fluid bolus for elevated potassium. CT of the entire spine, head, abdomen and pelvis, and head were all obtained. Results reviewed in assessment and plan, no signs of fracture, intracranial bleed, or solid organ injury. Evidence on CT of multifocal pneumonia. Allergies Allergy/AdvReac Type Severity Reaction Status Date / Time Iodinated Contrast Media Allergy Severe shortness Unverified 11/20/20 13:43 of breath pistachio nut Allergy Severe shortness Unverified 11/20/20 13:43 of breath Home Medications Medication Instructions Recorded Confirmed Type aspirin 81 mg tablet,delayed 81 mg PO QAM 11/20/20 11/20/20 History release (Aspirin Low Dose) atorvastatin 80 mg tablet (Lipitor) 80 mg PO QAM 11/20/20 11/20/20 History duloxetine 60 mg capsule,delayed 60 mg PO HS 11/20/20 11/20/20 History release (Cymbalta) ergocalciferol (vitamin D2) 1,250 1,250 mcg PO WK 11/20/20 11/20/20 History mcg (50,000 unit) capsule (Vitamin D2) gabapentin 800 mg tablet 800 mg PO TID 11/20/20 11/20/20 History (Neurontin) glimepiride 4 mg tablet (Amaryl) 4 mg PO BID 11/20/20 11/20/20 History insulin aspart U-100 100 unit/mL 1 sliding scale dose SUBCUT 11/20/20 11/20/20 History subcutaneous cartridge (Novolog USEASDIRECTD PenFill U-100 Insulin aspart) isosorbide mononitrate 30 mg 30 mg PO HS 11/20/20 11/20/20 History tablet,extended release 24 hr lisinopril 2.5 mg tablet (Zestril) 2.5 mg PO HS 11/20/20 11/20/20 History magnesium oxide 400 mg PO HS 11/20/20 11/20/20 History metoprolol succinate 50 mg 50 mg PO QAM 11/20/20 11/20/20 History tablet,extended release 24 hr (Toprol XL) morphine 15 mg immediate release See Rx Instructions .ROUTE .COMPLEX 11/20/20 11/20/20 History tablet morphine 15 mg tablet,extended See Rx Instructions .ROUTE .COMPLEX 11/20/20 11/20/20 History release (MS Contin) pantoprazole 40 mg tablet,delayed 40 mg PO BID 11/20/20 11/20/20 History release (Protonix) potassium chloride 10 mEq 10 meq PO QAM 11/20/20 11/20/20 History capsule,extended release torsemide 20 mg tablet 20 mg PO DAILY PRN 11/20/20 11/20/20 History Past Med/Surg History Medical History (Updated 11/20/20 @ 16:39 by Kareem Birmingham MD) CAD (coronary artery disease) Chronic pain GERD (gastroesophageal reflux disease) Type 2 diabetes mellitus with insulin therapy Social History Smoking Status: Current every day smoker Tobacco Type: Cigarettes Feels Safe at Home: Yes Review of Systems Review of Systems: Unobtainable due to cognitive status Physical Exam Physical Exam: General: Sedated, arouses to loud voice and vigorous shake/sternal rub before falling back asleep. HEENT: Atraumatic, normocephalic. Left scalp contusion. Pulm: Moderate air movement, coarse without overt rales or wheezes. No belly breathing/accessory muscle use of breathing at time of exam. Cardiac: RRR, -mrg. Radial pulses intact and symmetrical. Abdominal: Nontender, nondistended, soft. BS present. Extremities: Intact. Right ankle with mild contusion, no crepitus or bony abnormality appreciated. Neurologic: Exam limited by sedation/suspected narcosis. Pupils narrowed, responsive to light. No ankle clonus, patellar DTR 2+. Results & Data Results & Data ([facility]) Vital Signs (Past 12 Hours) Vital Signs Temp Pulse Pulse Resp BP Pulse Ox 11/20/20 12:22 93 H 25 H 89 L 11/20/20 12:00 91 H 25 H 180/99 H 95 11/20/20 11:49 98 H 21 96 11/20/20 11:30 92 H 15 162/102 H 93 11/20/20 11:04 37.0 C 91 H 16 163/76 H 82 L 11/20/20 11:00 92 H 18 163/76 H 93 Laboratory Results Abnormal lab results 11/20/20 11/20/20 11/20/20 Range/Units 11:58 11:58 12:23 WBC 18.17 H (4.8-10.8) K/uL RDW Std Deviation 51.9 H (36.4-46.3) fL RDW Coeff of Jairo 15.2 H (11.5-14.5) % MPV 11.3 H (7.4-10.4) fL Neut # (Auto) 16.32 H (1.4-6.5) K/uL Lymph # (Auto) 0.51 L (1.2-3.4) K/uL Dickens # (Auto) 1.20 H (0.11-0.59) K/uL Immature Gran # (Auto) 0.05 H (0.00-0.02) K/uL VBG pH (7.36-7.41) VBG pCO2 (38-50) mmHg Potassium 5.2 H (3.5-5.1) mmol/L BUN 52 H (7-18) mg/dl Creatinine 2.23 H (0.6-1.2) mg/dl BUN/Creatinine Ratio 23.2 H (10-20) Glucose 412 H* (70-99) mg/dl AST 162 H (15-37) U/L Albumin 3.1 L (3.4-5.0) gm/dl Globulin 4.5 H (2.5-4.0) gm/dl Albumin/Globulin Ratio 0.7 L (0.9-2) Urine Opiates Screen Pos H (Neg) 11/20/20 Range/Units 15:33 WBC (4.8-10.8) K/uL RDW Std Deviation (36.4-46.3) fL RDW Coeff of Jairo (11.5-14.5) % MPV (7.4-10.4) fL Neut # (Auto) (1.4-6.5) K/uL Lymph # (Auto) (1.2-3.4) K/uL Dickens # (Auto) (0.11-0.59) K/uL Immature Gran # (Auto) (0.00-0.02) K/uL VBG pH 7.26 L (7.36-7.41) VBG pCO2 56 H (38-50) mmHg Potassium (3.5-5.1) mmol/L BUN (7-18) mg/dl Creatinine (0.6-1.2) mg/dl BUN/Creatinine Ratio (10-20) Glucose (70-99) mg/dl AST (15-37) U/L Albumin (3.4-5.0) gm/dl Globulin (2.5-4.0) gm/dl Albumin/Globulin Ratio (0.9-2) Urine Opiates Screen (Neg) Diagnostic Findings Cervical Spine CT 11/20/20 11:26 CT SCAN OF THE CERVICAL SPINE CLINICAL HISTORY: Trauma. Fall. COMPARISON STUDY: No priors. TECHNIQUE: CT scan of the cervical spine is performed from the skull base to the upper thoracic spine. Images are reviewed in the axial, sagittal, and coronal planes. IV contrast was not administered for this examination. A dose lowering technique was utilized adhering to the principles of ALARA. FINDINGS: Skeletal structures: The skeletal structures are osteopenic. There is no evidence of fracture or subluxation involving the cervical spine. Vertebral body height and alignment are maintained. Anterior osteophytes are seen throughout. The odontoid process and lateral masses are intact. The atlantoaxial roland culation is preserved noting mild productive degenerative change. The spinous processes appear intact. There is mild multilevel facet arthropathy. Intervertebral discs: The disc spaces are maintained. Central canal: Tiny posterior disc osteophyte complexes at C5-C6 and C6-C7 may contribute to mild acquired compromise of the central canal. Soft tissues: The prevertebral and paraspinous soft tissues are within normal limits. There is atherosclerotic calcification of the carotid bulbs. 3 mm low- attenuation nodule is noted in the left lobe of the thyroid. Calvarium: The visualized calvarium at the skull base appears intact. Brain parenchyma: Partially visualized brain parenchyma at the skull base is within normal limits. Sinuses and mastoids: There is mucosal thickening and fluid within the left maxillary antrum. There is a small left mastoid effusion. The right mastoid air cells are well pneumatized. Lung apices: Mild emphysematous change is noted at the apices. IMPRESSION: There is no evidence of fracture or subluxation involving the cervical spine. ACT 112: Negative or not required by law. Electronically signed by: Fransisco Jarrett M.D. 11/20/2020 2:59 PM Chest X-Ray 11/20/20 11:26 SINGLE VIEW CHEST CLINICAL HISTORY: Atypical chest pain. FINDINGS: 2 AP, portable, upright chest radiographs are obtained. No prior studi es are available for comparison at the time of dictation. The examination is degraded by portable technique and patient rotation. The cardiomediastinal silhouette is unremarkable noting atherosclerotic calcification of the thoracic aorta. Patchy airspace consolidation is present at both lung bases, right greater than left. No large pleural effusion or pneumothorax is seen. The skeletal structures are osteopenic. The bony thorax is grossly intact. An intrathecal lead projects over the mid thoracic spine. IMPRESSION: There is bibasilar airspace consolidation, right greater than left. Correlate clinically for evidence of pneumonia/aspiration pneumonitis. Radiographic follow-up to resolution is recommended. ACT 112: Negative or not required by law. Electronically signed by: Fransisco Jarrett M.D. 11/20/2020 12:[address] 11/20/20 11:26 CT SCAN OF THE BRAIN WITHOUT IV CONTRAST CLINICAL HISTORY: Fall. Change in mental status. COMPARISON STUDY: No priors. TECHNIQUE: Unenhanced axial CT scan of the brain is performed from the vertex to the skull base. A dose lowering technique was utilized adhering to the principles of ALARA. FINDINGS: Brain parenchyma: The brain parenchyma is normal in appearance. There is no hemorrhage, mass effect, or evidence of acute territorial ischemia by CT criteria. Lopez-white matter differentiation is preserved. No extra-axial fluid collection is seen. Ventricles, sulci, cisterns: Normal in configuration. Intracranial vasculature: There is atherosclerotic calcification of the cavernous carotid and vertebral arteries. Calvarium: There is no depressed calvarial fracture. Soft tissues: There is a left frontal scalp contusion. Sinuses and mastoids: There is trace mucosal thickening and air-fluid level in the left maxillary antrum. Trace mucosal thickening is noted in the frontal and ethmoid sinuses. The remaining paranasal sinuses are clear. There is trace left mastoid effusion. The right mastoid air cells are well pneumatized. Orbits: The bony orbits are grossly intact. IMPRESSION: 1. There is no hemorrhage, mass effect, or evidence of acute territorial ischemia by CT criteria. 2. Paranasal sinus disease as above. 3. Small left frontal scalp contusion. ACT 112: Negative or not required by law. Electronically signed by: Fransisco Jarrett M.D. 11/20/2020 2:[address] 11/20/20 11:26 CT SCAN OF THE CHEST, ABDOMEN, AND PELVIS WITHOUT IV CONTRAST; CT SCAN OF THE THORACIC SPINE WITHOUT IV CONTRAST; CT SCAN OF THE LUMBAR SPINE WITHOUT IV CONTRAST CLINICAL HISTORY: Fall. COMPARISON STUDY: Chest x-ray dated 11/20/2020. TECHNIQUE: Unenhanced CT scan of the chest, abdomen, and pelvis was performed from the thoracic inlet to the proximal femora. Additionally, CT scan of the thoracic spine is performed from the lower cervical spine to the upper lumbar spine and CT scan of the lumbar spine is performed from the lower thoracic spine to the sacrum. Images for these examinations are reviewed in the axial, sagittal, and coronal planes. IV contrast was not administered for these examinations. Note that the examinations were performed in suboptimal fashion without IV contrast. A dose lowering technique was utilized adhering to the principles of ALARA. CT DOSE: 4329.44 mGy.cm FINDINGS: CHEST: Thyroid: Normal in size and heterogeneous in attenuation. Thoracic aorta: There is atherosclerotic calcification of the thoracic aorta, which is normal in caliber and demonstrates standard 3-vessel arch anatomy. Heart: The heart is mildly enlarged and without pericardial effusion. The coronary arteries and mitral annulus are densely calcified. The pulmonary trunk is dilated, measuring 3.7 cm in diameter. This suggests pulmonary artery hypertension. Lungs and pleural spaces: Evaluation of the lung parenchyma is compromised by motion artifact. Mild emphysematous change is noted. Multifocal patchy/nodular airspace consolidation is seen throughout both lungs, most confluent in the right lower lobe. Secretions are noted in the trachea. No pleural effusion is identified. Mediastinum: No mediastinal hematoma is identified. There are prominent mediastinal lymph nodes. A subcarinal node on image #120 measures 14 mm in short axis. Rosa: Not well assessed without IV contrast. Axillae: There is no axillary lymphadenopathy. Bony thorax: See below for dedicated assessment of the thoracic spine. The skeletal structures are osteopenic. The bony thorax appears intact. No lytic or blastic lesions are identified. There is a healed right anterolateral second rib fracture. THORACIC SPINE: Vertebral body height and alignment are maintained throughout the thoracic spine. No fracture or malalignment is identified. There is mild hyperkyphosis. An interestingly device is present in the left gluteal soft tissues. The lead enters the thecal sac in the lower thoracic region, and the tip terminates in the midthoracic spinal canal at the level of T7. The transverse and spinous processes are intact. Small anterior and lateral marginal osteophytes are seen throughout. There is mild multilevel degenerative disc space narrowing. The paraspinous soft tissues are normal in appearance. ABDOMEN AND PELVIS: Liver: The unenhanced liver is normal in size, contour, and attenuation. There is no intrahepatic biliary ductal dilatation. Gallbladder: Unremarkable. Spleen: Normal in size and attenuation. Pancreas: The unenhanced pancreas is mildly atrophic and grossly unremarkable. Adrenal glands: A 5.4 cm low-attenuation right adrenal nodule and a 3.6 cm low- attenuation left adrenal nodule meet CT criteria for fat-containing adenomas. Kidneys: The unenhanced kidneys demonstrate cortical atrophy and are without hydronephrosis. No renal calculi are identified. Bilateral renal cysts measure up to 3 cm. Abdominal vasculature: The abdominal aorta is normal in course and caliber noting advanced atherosclerotic calcification. Bilateral iliac artery stents are in place. A stent is also seen in the left common femoral artery. Stomach and bowel: There is a small hiatal hernia. Mild fecal retention is seen throughout the colon. No bowel obstruction is identified. There is approximately 10 cm segment of underdistention versus wall thickening involving the ascending colon. This is best seen on image #188. The appendix is not visualized. Peritoneum: There is no intraperitoneal free air or abdominal ascites. There is a small fat-containing umbilical hernia. Lymphadenopathy: None. Pelvic viscera: The bladder is distended but otherwise normal in appearance. The uterus and adnexa are normal as visualized. Skeletal structures: See below for dedicated assessment of the lumbar spine. The skeletal structures are osteopenic. The bony pelvis and proximal femora appear intact. No lytic or blastic lesions are seen. LUMBAR SPINE: Vertebral body height and alignment are maintained throughout the lumbar spine. There is no evidence of fracture or malalignment. The transverse and spinous processes are intact. Small anterior and lateral marginal osteophytes are seen throughout. There is no evidence of spondylolysis. There is advanced disc space narrowing at L3-L4, L4-L5, and L5-S1 with associated endplate sclerosis. Posterior disc osteophyte complexes at these levels may contribute to acquired compromise of the central canal. Disc bulge is also seen at L2-L3. Facet arthropathy is noted in the lower lumbar region. The paraspinous soft tissues are within normal limits. A sacral stimulator device is present in the right gluteal soft tissues. IMPRESSION: 1. Suboptimal examination without IV contrast. 2. There is no acute posttraumatic intrathoracic abnormality. 3. There is multifocal patchy/nodular airspace consolidation as detailed above, typical in appearance for multifocal pneumonia. Clinical correlation will be required and radiographic follow-up to resolution is recommended. Given the nodular appearance, a follow-up chest CT in 3 months time is also recommended for reassessment. 4. There is no pleural effusion or pneumothorax. 5. There is no evidence of solid organ injury in the abdomen or pelvis on this unenhanced examination. 6. Cardiomegaly and emphysema. 7. There is no evidence of fracture or malalignment involving the thoracic spine. 8. There is no evidence of fracture or malalignment involving the lumbar spine. 9. Bladder distention 10. There is an approximately 10 cm segment of underdistention versus mildly thick-walled ascending colon. Underdistention is favored an clinical correlation will be required. If warranted this could be further assessed with endoscopy on a nonemergent basis. 11. Additional findings as above. ACT 112: Negative or not required by law. Electronically signed by: Fransisco Jarrett M.D. 11/20/2020 3:[address] 11/20/20 11:26 CT SCAN OF THE CHEST, ABDOMEN, AND PELVIS WITHOUT IV CONTRAST; CT SCAN OF THE THORACIC SPINE WITHOUT IV CONTRAST; CT SCAN OF THE LUMBAR SPINE WITHOUT IV CONTRAST CLINICAL HISTORY: Fall. COMPARISON STUDY: Chest x-ray dated 11/20/2020. TECHNIQUE: Unenhanced CT scan of the chest, abdomen, and pelvis was performed from the thoracic inlet to the proximal femora. Additionally, CT scan of the thoracic spine is performed from the lower cervical spine to the upper lumbar spine and CT scan of the lumbar spine is performed from the lower thoracic spine to the sacrum. Images for these examinations are reviewed in the axial, sagittal, and coronal planes. IV contrast was not administered for these examinations. Note that the examinations were performed in suboptimal fashion without IV contrast. A dose lowering technique was utilized adhering to the principles of ALARA. CT DOSE: 4329.44 mGy.cm FINDINGS: CHEST: Thyroid: Normal in size and heterogeneous in attenuation. Thoracic aorta: There is atherosclerotic calcification of the thoracic aorta, which is normal in caliber and demonstrates standard 3-vessel arch anatomy. Heart: The heart is mildly enlarged and without pericardial effusion. The coronary arteries and mitral annulus are densely calcified. The pulmonary trunk is dilated, measuring 3.7 cm in diameter. This suggests pulmonary artery hypertension. Lungs and pleural spaces: Evaluation of the lung parenchyma is compromised by motion artifact. Mild emphysematous change is noted. Multifocal patchy/nodular airspace consolidation is seen throughout both lungs, most confluent in the right lower lobe. Secretions are noted in the trachea. No pleural effusion is identified. Mediastinum: No mediastinal hematoma is identified. There are prominent mediastinal lymph nodes. A subcarinal node on image #120 measures 14 mm in short axis. Rosa: Not well assessed without IV contrast. Axillae: There is no axillary lymphadenopathy. Bony thorax: See below for dedicated assessment of the thoracic spine. The skeletal structures are osteopenic. The bony thorax appears intact. No lytic or blastic lesions are identified. There is a healed right anterolateral second rib fracture. THORACIC SPINE: Vertebral body height and alignment are maintained throughout the thoracic spine. No fracture or malalignment is identified. There is mild hyperkyphosis. An interestingly device is present in the left gluteal soft tissues. The lead enters the thecal sac in the lower thoracic region, and the tip terminates in the midthoracic spinal canal at the level of T7. The transverse and spinous processes are intact. Small anterior and lateral marginal osteophytes are seen throughout. There is mild multilevel degenerative disc space narrowing. The paraspinous soft tissues are normal in appearance. ABDOMEN AND PELVIS: Liver: The unenhanced liver is normal in size, contour, and attenuation. There is no intrahepatic biliary ductal dilatation. Gallbladder: Unremarkable. Spleen: Normal in size and attenuation. Pancreas: The unenhanced pancreas is mildly atrophic and grossly unremarkable. Adrenal glands: A 5.4 cm low-attenuation right adrenal nodule and a 3.6 cm low-attenuation left adrenal nodule meet CT criteria for fat-containing adenomas. Kidneys: The unenhanced kidneys demonstrate cortical atrophy and are without hydronephrosis. No renal calculi are identified. Bilateral renal cysts measure up to 3 cm. Abdominal vasculature: The abdominal aorta is normal in course and caliber noting advanced atherosclerotic calcification. Bilateral iliac artery stents are in place. A stent is also seen in the left common femoral artery. Stomach and bowel: There is a small hiatal hernia. Mild fecal retention is seen throughout the colon. No bowel obstruction is identified. There is approximately 10 cm segment of underdistention versus wall thickening involving the ascending colon. This is best seen on image #188. The appendix is not visualized. Peritoneum: There is no intraperitoneal free air or abdominal ascites. There is a small fat-containing umbilical hernia. Lymphadenopathy: None. Pelvic viscera: The bladder is distended but otherwise normal in appearance. The uterus and adnexa are normal as visualized. Skeletal structures: See below for dedicated assessment of the lumbar spine. The skeletal structures are osteopenic. The bony pelvis and proximal femora appear intact. No lytic or blastic lesions are seen. LUMBAR SPINE: Vertebral body height and alignment are maintained throughout the lumbar spine. There is no evidence of fracture or malalignment. The transverse and spinous processes are intact. Small anterior and lateral marginal osteophytes are seen throughout. There is no evidence of spondylolysis. There is advanced disc space narrowing at L3-L4, L4-L5, and L5-S1 with associated endplate sclerosis. Posterior disc osteophyte complexes at these levels may contribute to acquired compromise of the central canal. Disc bulge is also seen at L2-L3. Facet arthropathy is noted in the lower lumbar region. The paraspinous soft tissues are within normal limits. A sacral stimulator device is present in the right gluteal soft tissues. IMPRESSION: 1. Suboptimal examination without IV contrast. 2. There is no acute posttraumatic intrathoracic abnormality. 3. There is multifocal patchy/nodular airspace consolidation as detailed above, typical in appearance for multifocal pneumonia. Clinical correlation will be required and radiographic follow-up to resolution is recommended. Given the nodular appearance, a follow-up chest CT in 3 months time is also recommended for reassessment. 4. There is no pleural effusion or pneumothorax. 5. There is no evidence of solid organ injury in the abdomen or pelvis on this unenhanced examination. 6. Cardiomegaly and emphysema. 7. There is no evidence of fracture or malalignment involving the thoracic spine. 8. There is no evidence of fracture or malalignment involving the lumbar spine. 9. Bladder distention 10. There is an approximately 10 cm segment of underdistention versus mildly thick-walled ascending colon. Underdistention is favored an clinical correlation will be required. If warranted this could be further assessed with endoscopy on a nonemergent basis. 11. Additional findings as above. ACT 112: Negative or not required by law. Electronically signed by: Fransisco Jarrett M.D. 11/20/2020 3:24 PM Abdomen/Pelvis CT 11/20/20 13:45 CT SCAN OF THE CHEST, ABDOMEN, AND PELVIS WITHOUT IV CONTRAST; CT SCAN OF THE THORACIC SPINE WITHOUT IV CONTRAST; CT SCAN OF THE LUMBAR SPINE WITHOUT IV CONTRAST CLINICAL HISTORY: Fall. COMPARISON STUDY: Chest x-ray dated 11/20/2020. TECHNIQUE: Unenhanced CT scan of the chest, abdomen, and pelvis was performed from the thoracic inlet to the proximal femora. Additionally, CT scan of the thoracic spine is performed from the lower cervical spine to the upper lumbar spine and CT scan of the lumbar spine is performed from the lower thoracic spine to the sacrum. Images for these examinations are reviewed in the axial, sagittal, and coronal planes. IV contrast was not administered for these examinations. Note that the examinations were performed in suboptimal fashion without IV contrast. A dose lowering technique was utilized adhering to the principles of ALARA. CT DOSE: 4329.44 mGy.cm FINDINGS: CHEST: Thyroid: Normal in size and heterogeneous in attenuation. Thoracic aorta: There is atherosclerotic calcification of the thoracic aorta, which is normal in caliber and demonstrates standard 3-vessel arch anatomy. Heart: The heart is mildly enlarged and without pericardial effusion. The coronary arteries and mitral annulus are densely calcified. The pulmonary trunk is dilated, measuring 3.7 cm in diameter. This suggests pulmonary artery hypertension. Lungs and pleural spaces: Evaluation of the lung parenchyma is compromised by motion artifact. Mild emphysematous change is noted. Multifocal patchy/nodular airspace consolidation is seen throughout both lungs, most confluent in the right lower lobe. Secretions are noted in the trachea. No pleural effusion is identified. Mediastinum: No mediastinal hematoma is identified. There are prominent mediastinal lymph nodes. A subcarinal node on image #120 measures 14 mm in short axis. Rosa: Not well assessed without IV contrast. Axillae: There is no axillary lymphadenopathy. Bony thorax: See below for dedicated assessment of the thoracic spine. The skeletal structures are osteopenic. The bony thorax appears intact. No lytic or blastic lesions are identified. There is a healed right anterolateral second rib fracture. THORACIC SPINE: Vertebral body height and alignment are maintained throughout the thoracic spine. No fracture or malalignment is identified. There is mild hyperkyphosis. An interestingly device is present in the left gluteal soft tissues. The lead enters the thecal sac in the lower thoracic region, and the tip terminates in the midthoracic spinal canal at the level of T7. The transverse and spinous processes are intact. Small anterior and lateral marginal osteophytes are seen throughout. There is mild multilevel degenerative disc space narrowing. The paraspinous soft tissues are normal in appearance. ABDOMEN AND PELVIS: Liver: The unenhanced liver is normal in size, contour, and attenuation. There is no intrahepatic biliary ductal dilatation. Gallbladder: Unremarkable. Spleen: Normal in size and attenuation. Pancreas: The unenhanced pancreas is mildly atrophic and grossly unremarkable. Adrenal glands: A 5.4 cm low-attenuation right adrenal nodule and a 3.6 cm low- attenuation left adrenal nodule meet CT criteria for fat-containing adenomas. Kidneys: The unenhanced kidneys demonstrate cortical atrophy and are without hydronephrosis. No renal calculi are identified. Bilateral renal cysts measure up to 3 cm. Abdominal vasculature: The abdominal aorta is normal in course and caliber noting advanced atherosclerotic calcification. Bilateral iliac artery stents are in place. A stent is also seen in the left common femoral artery. Stomach and bowel: There is a small hiatal hernia. Mild fecal retention is seen throughout the colon. No bowel obstruction is identified. There is approximately 10 cm segment of underdistention versus wall thickening involving the ascending colon. This is best seen on image #188. The appendix is not visualized. Peritoneum: There is no intraperitoneal free air or abdominal ascites. There is a small fat-containing umbilical hernia. Lymphadenopathy: None. Pelvic viscera: The bladder is distended but otherwise normal in appearance. The uterus and adnexa are normal as visualized. Skeletal structures: See below for dedicated assessment of the lumbar spine. The skeletal structures are osteopenic. The bony pelvis and proximal femora appear intact. No lytic or blastic lesions are seen. LUMBAR SPINE: Vertebral body height and alignment are maintained throughout the lumbar spine. There is no evidence of fracture or malalignment. The transverse and spinous processes are intact. Small anterior and lateral marginal osteophytes are seen throughout. There is no evidence of spondylolysis. There is advanced disc space narrowing at L3-L4, L4-L5, and L5-S1 with associated endplate sclerosis. Posterior disc osteophyte complexes at these levels may contribute to acquired compromise of the central canal. Disc bulge is also seen at L2-L3. Facet arthropathy is noted in the lower lumbar region. The paraspinous soft tissues are within normal limits. A sacral stimulator device is present in the right gluteal soft tissues. IMPRESSION: 1. Suboptimal examination without IV contrast. 2. There is no acute posttraumatic intrathoracic abnormality. 3. There is multifocal patchy/nodular airspace consolidation as detailed above, typical in appearance for multifocal pneumonia. Clinical correlation will be required and radiographic follow-up to resolution is recommended. Given the nodular appearance, a follow-up chest CT in 3 months time is also recommended for reassessment. 4. There is no pleural effusion or pneumothorax. 5. There is no evidence of solid organ injury in the abdomen or pelvis on this unenhanced examination. 6. Cardiomegaly and emphysema. 7. There is no evidence of fracture or malalignment involving the thoracic spine. 8. There is no evidence of fracture or malalignment involving the lumbar spine. 9. Bladder distention 10. There is an approximately 10 cm segment of underdistention versus mildly thick-walled ascending colon. Underdistention is favored an clinical correlation will be required. If warranted this could be further assessed with endoscopy on a nonemergent basis. 11. Additional findings as above. ACT 112: Negative or not required by law. Electronically signed by: Fransisco Jarrett M.D. 11/20/2020 3:[address] 11/20/20 13:45 CT SCAN OF THE CHEST, ABDOMEN, AND PELVIS WITHOUT IV CONTRAST; CT SCAN OF THE THORACIC SPINE WITHOUT IV CONTRAST; CT SCAN OF THE LUMBAR SPINE WITHOUT IV CONTRAST CLINICAL HISTORY: Fall. COMPARISON STUDY: Chest x-ray dated 11/20/2020. TECHNIQUE: Unenhanced CT scan of the chest, abdomen, and pelvis was performed from the thoracic inlet to the proximal femora. Additionally, CT scan of the thoracic spine is performed from the lower cervical spine to the upper lumbar spine and CT scan of the lumbar spine is performed from the lower thoracic spine to the sacrum. Images for these examinations are reviewed in the axial, sagittal, and coronal planes. IV contrast was not administered for these examinations. Note that the examinations were performed in suboptimal fashion without IV contrast. A dose lowering technique was utilized adhering to the principles of ALARA. CT DOSE: 4329.44 mGy.cm FINDINGS: CHEST: Thyroid: Normal in size and heterogeneous in attenuation. Thoracic aorta: There is atherosclerotic calcification of the thoracic aorta, which is normal in caliber and demonstrates standard 3-vessel arch anatomy. Heart: The heart is mildly enlarged and without pericardial effusion. The coronary arteries and mitral annulus are densely calcified. The pulmonary trunk is dilated, measuring 3.7 cm in diameter. This suggests pulmonary artery hypertension. Lungs and pleural spaces: Evaluation of the lung parenchyma is compromised by motion artifact. Mild emphysematous change is noted. Multifocal patchy/nodular airspace consolidation is seen throughout both lungs, most confluent in the right lower lobe. Secretions are noted in the trachea. No pleural effusion is identified. Mediastinum: No mediastinal hematoma is identified. There are prominent mediastinal lymph nodes. A subcarinal node on image #120 measures 14 mm in short axis. Rosa: Not well assessed without IV contrast. Axillae: There is no axillary lymphadenopathy. Bony thorax: See below for dedicated assessment of the thoracic spine. The skeletal structures are osteopenic. The bony thorax appears intact. No lytic or blastic lesions are identified. There is a healed right anterolateral second rib fracture. THORACIC SPINE: Vertebral body height and alignment are maintained throughout the thoracic spine. No fracture or malalignment is identified. There is mild hyperkyphosis. An interestingly device is present in the left gluteal soft tissues. The lead enters the thecal sac in the lower thoracic region, and the tip terminates in the midthoracic spinal canal at the level of T7. The transverse and spinous processes are intact. Small anterior and lateral marginal osteophytes are seen throughout. There is mild multilevel degenerative disc space narrowing. The paraspinous soft tissues are normal in appearance. ABDOMEN AND PELVIS: Liver: The unenhanced liver is normal in size, contour, and attenuation. There is no intrahepatic biliary ductal dilatation. Gallbladder: Unremarkable. Spleen: Normal in size and attenuation. Pancreas: The unenhanced pancreas is mildly atrophic and grossly unremarkable. Adrenal glands: A 5.4 cm low-attenuation right adrenal nodule and a 3.6 cm low- attenuation left adrenal nodule meet CT criteria for fat-containing adenomas. Kidneys: The unenhanced kidneys demonstrate cortical atrophy and are without hy dronephrosis. No renal calculi are identified. Bilateral renal cysts measure up to 3 cm. Abdominal vasculature: The abdominal aorta is normal in course and caliber noting advanced atherosclerotic calcification. Bilateral iliac artery stents are in place. A stent is also seen in the left common femoral artery. Stomach and bowel: There is a small hiatal hernia. Mild fecal retention is seen throughout the colon. No bowel obstruction is identified. There is approximately 10 cm segment of underdistention versus wall thickening involving the ascending colon. This is best seen on image #188. The appendix is not visualized. Peritoneum: There is no intraperitoneal free air or abdominal ascites. There is a small fat-containing umbilical hernia. Lymphadenopathy: None. Pelvic viscera: The bladder is distended but otherwise normal in appearance. The uterus and adnexa are normal as visualized. Skeletal structures: See below for dedicated assessment of the lumbar spine. The skeletal structures are osteopenic. The bony pelvis and proximal femora appear intact. No lytic or blastic lesions are seen. LUMBAR SPINE: Vertebral body height and alignment are maintained throughout the lumbar spine. There is no evidence of fracture or malalignment. The transverse and spinous processes are intact. Small anterior and lateral marginal osteophytes are seen throughout. There is no evidence of spondylolysis. There is advanced disc space narrowing at L3-L4, L4-L5, and L5-S1 with associated endplate sclerosis. Posterior disc osteophyte complexes at these levels may contribute to acquired compromise of the central canal. Disc bulge is also seen at L2-L3. Facet arthropathy is noted in the lower lumbar region. The paraspinous soft tissues are within normal limits. A sacral stimulator device is present in the right gluteal soft tissues. IMPRESSION: 1. Suboptimal examination without IV contrast. 2. There is no acute posttraumatic intrathoracic abnormality. 3. There is multifocal patchy/nodular airspace consolidation as detailed above, typical in appearance for multifocal pneumonia. Clinical correlation will be required and radiographic follow-up to resolution is recommended. Given the nodular appearance, a follow-up chest CT in 3 months time is also recommended for reassessment. 4. There is no pleural effusion or pneumothorax. 5. There is no evidence of solid organ injury in the abdomen or pelvis on this unenhanced examination. 6. Cardiomegaly and emphysema. 7. There is no evidence of fracture or malalignment involving the thoracic spine. 8. There is no evidence of fracture or malalignment involving the lumbar spine. 9. Bladder distention 10. There is an approximately 10 cm segment of underdistention versus mildly thick-walled ascending colon. Underdistention is favored an clinical correlation will be required. If warranted this could be further assessed with endoscopy on a nonemergent basis. 11. Additional findings as above. ACT 112: Negative or not required by law. Electronically signed by: Fransisco Jarrett M.D. 11/20/2020 3:24 PM PG Care Time/CCT Total # of Minutes Spent Total Time Spent with Patient: Total time spent is greater than 50% in coordination of care (as documented) at patient's floor/unit and/or counseling patient: Coding Level of Care Code 66940 Initial Inpt Care Lvl 3 Diagnoses CAD (coronary artery disease) I25.10 Chronic pain G89.29 GERD (gastroesophageal reflux disease) K21.9 Type 2 diabetes mellitus with insulin therapy E11.9; Z79.4 Hyperkalemia E87.5 Multifocal pneumonia J18.9 Altered mental status R41.82 Elevated AST (SGOT) R74.01
--- NOTE | 2020-11-20 14:55 | CT Scan Report ---
CT SCAN OF THE BRAIN WITHOUT IV CONTRAST CLINICAL HISTORY: Fall. Change in mental status. COMPARISON STUDY: No priors. TECHNIQUE: Unenhanced axial CT scan of the brain is performed from the vertex to the skull base. A d ose lowering technique was utilized adhering to the principles of ALARA. FINDINGS: Brain parenchyma: The brain parenchyma is normal in appearance. There is no hemorrhage, mass effect, or evidence of acute territorial ischemia by CT criteria. Lopez-white matter differentiation is preser ludwin. No extra-axial fluid collection is seen. Ventricles, sulci, cisterns: Normal in configuration. Intracranial vasculature: There is atherosclerotic calcification of the cavernous carotid and vertebr al arteries. Calvarium: There is no depressed calvarial fracture. Soft tissues: There is a left frontal scalp contusion. Sinuses and mastoids: There is trace mucosal thickening and air-fluid level in the left maxillary ant rum. Trace mucosal thickening is noted in the frontal and ethmoid sinuses. The remaining paranasal si nuses are clear. There is trace left mastoid effusion. The right mastoid air cells are well pneumatiz ed. Orbits: The bony orbits are grossly intact. IMPRESSION: 1. There is no hemorrhage, mass effect, or evidence of acute territorial ischemia by CT criteria. 2. Paranasal sinus disease as above. 3. Small left frontal scalp contusion. ACT 112: Negative or not required by law. Electronically signed by: Fransisco Jarrett M.D. 11/20/2020 2:53 PM
--- NOTE | 2020-11-20 15:00 | CT Scan Report ---
CT SCAN OF THE CERVICAL SPINE CLINICAL HISTORY: Trauma. Fall. COMPARISON STUDY: No priors. TECHNIQUE: CT scan of the cervical spine is performed from the skull base to the upper thoracic spine . Images are reviewed in the axial, sagittal, and coronal planes. IV contrast was not administered fo r this examination. A dose lowering technique was utilized adhering to the principles of ALARA. FINDINGS: Skeletal structures: The skeletal structures are osteopenic. There is no evidence of fracture or subl uxation involving the cervical spine. Vertebral body height and alignment are maintained. Anterior os teophytes are seen throughout. The odontoid process and lateral masses are intact. The atlantoaxial a rticulation is preserved noting mild productive degenerative change. The spinous processes appear int act. There is mild multilevel facet arthropathy. Intervertebral discs: The disc spaces are maintained. Central canal: Tiny posterior disc osteophyte complexes at C5-C6 and C6-C7 may contribute to mild acq uired compromise of the central canal. Soft tissues: The prevertebral and paraspinous soft tissues are within normal limits. There is athero sclerotic calcification of the carotid bulbs. 3 mm low-attenuation nodule is noted in the left lobe o f the thyroid. Calvarium: The visualized calvarium at the skull base appears intact. Brain parenchyma: Partially visualized brain parenchyma at the skull base is within normal limits. Sinuses and mastoids: There is mucosal thickening and fluid within the left maxillary antrum. There i s a small left mastoid effusion. The right mastoid air cells are well pneumatized. Lung apices: Mild emphysematous change is noted at the apices. IMPRESSION: There is no evidence of fracture or subluxation involving the cervical spine. ACT 112: Negative or not required by law. Electronically signed by: Fransisco Jarrett M.D. 11/20/2020 2:59 PM
[2020-11-20] MEDS ORDERED: levoFLOXacin/D5W 750 MG/150 ML BAG IV STA (15:05)
[2020-11-20] MEDS ORDERED: PIPERACILLIN/TAZOBACTAM 4.5 GM/120 ML BAG IV ONE (15:06)
[2020-11-20] MEDS ORDERED: PIPERACILL/TAZOBAC CONSULT ACTIVE PRN (15:06)
--- NOTE | 2020-11-20 15:26 | CT Scan Report ---
CT SCAN OF THE CHEST, ABDOMEN, AND PELVIS WITHOUT IV CONTRAST; CT SCAN OF THE THORACIC SPINE WITHOUT IV CONTRAST; CT SCAN OF THE LUMBAR SPINE WITHOUT IV CONTRAST CLINICAL HISTORY: Fall. COMPARISON STUDY: Chest x-ray dated 11/20/2020. TECHNIQUE: Unenhanced CT scan of the chest, abdomen, and pelvis was performed from the thoracic inlet to the proximal femora. Additionally, CT scan of the thoracic spine is performed from the lower cerv ical spine to the upper lumbar spine and CT scan of the lumbar spine is performed from the lower thor acic spine to the sacrum. Images for these examinations are reviewed in the axial, sagittal, and gildardo nal planes. IV contrast was not administered for these examinations. Note that the examinations were performed in suboptimal fashion without IV contrast. A dose lowering technique was utilized adhering to the principles of ALARA. CT DOSE: 4329.44 mGy.cm FINDINGS: CHEST: Thyroid: Normal in size and heterogeneous in attenuation. Thoracic aorta: There is atherosclerotic calcification of the thoracic aorta, which is normal in lidia socorro and demonstrates standard 3-vessel arch anatomy. Heart: The heart is mildly enlarged and without pericardial effusion. The coronary arteries and bart l annulus are densely calcified. The pulmonary trunk is dilated, measuring 3.7 cm in diameter. This s uggests pulmonary artery hypertension. Lungs and pleural spaces: Evaluation of the lung parenchyma is compromised by motion artifact. Mild e mphysematous change is noted. Multifocal patchy/nodular airspace consolidation is seen throughout bot h lungs, most confluent in the right lower lobe. Secretions are noted in the trachea. No pleural effu agapito is identified. Mediastinum: No mediastinal hematoma is identified. There are prominent mediastinal lymph nodes. A dill bcarinal node on image #120 measures 14 mm in short axis. Rosa: Not well assessed without IV contrast. Axillae: There is no axillary lymphadenopathy. Bony thorax: See below for dedicated assessment of the thoracic spine. The skeletal structures are os teopenic. The bony thorax appears intact. No lytic or blastic lesions are identified. There is a heal ed right anterolateral second rib fracture. THORACIC SPINE: Vertebral body height and alignment are maintained throughout the thoracic spine. No fracture or malalignment is identified. There is mild hyperkyphosis. An interestingly device is prese nt in the left gluteal soft tissues. The lead enters the thecal sac in the lower thoracic region, and the tip terminates in the midthoracic spinal canal at the level of T7. The transverse and spinous pr ocesses are intact. Small anterior and lateral marginal osteophytes are seen throughout. There is mil d multilevel degenerative disc space narrowing. The paraspinous soft tissues are normal in appearance . ABDOMEN AND PELVIS: Liver: The unenhanced liver is normal in size, contour, and attenuation. There is no intrahepatic lennox iary ductal dilatation. Gallbladder: Unremarkable. Spleen: Normal in size and attenuation. Pancreas: The unenhanced pancreas is mildly atrophic and grossly unremarkable. Adrenal glands: A 5.4 cm low-attenuation right adrenal nodule and a 3.6 cm low-attenuation left adren al nodule meet CT criteria for fat-containing adenomas. Kidneys: The unenhanced kidneys demonstrate cortical atrophy and are without hydronephrosis. No renal calculi are identified. Bilateral renal cysts measure up to 3 cm. Abdominal vasculature: The abdominal aorta is normal in course and caliber noting advanced atheroscle rotic calcification. Bilateral iliac artery stents are in place. A stent is also seen in the left com mon femoral artery. Stomach and bowel: There is a small hiatal hernia. Mild fecal retention is seen throughout the colon. No bowel obstruction is identified. There is approximately 10 cm segment of underdistention versus w all thickening involving the ascending colon. This is best seen on image #188. The appendix is not v isualized. Peritoneum: There is no intraperitoneal free air or abdominal ascites. There is a small fat-containin g umbilical hernia. Lymphadenopathy: None. Pelvic viscera: The bladder is distended but otherwise normal in appearance. The uterus and adnexa ar e normal as visualized. Skeletal structures: See below for dedicated assessment of the lumbar spine. The skeletal structures are osteopenic. The bony pelvis and proximal femora appear intact. No lytic or blastic lesions are se en. LUMBAR SPINE: Vertebral body height and alignment are maintained throughout the lumbar spine. There i s no evidence of fracture or malalignment. The transverse and spinous processes are intact. Small ant erior and lateral marginal osteophytes are seen throughout. There is no evidence of spondylolysis. Th ere is advanced disc space narrowing at L3-L4, L4-L5, and L5-S1 with associated endplate sclerosis. P osterior disc osteophyte complexes at these levels may contribute to acquired compromise of the centr al canal. Disc bulge is also seen at L2-L3. Facet arthropathy is noted in the lower lumbar region. Th e paraspinous soft tissues are within normal limits. A sacral stimulator device is present in the rig ht gluteal soft tissues. IMPRESSION: 1. Suboptimal examination without IV contrast. 2. There is no acute posttraumatic intrathoracic abnormality. 3. There is multifocal patchy/nodular airspace consolidation as detailed above, typical in appearance for multifocal pneumonia. Clinical correlation will be required and radiographic follow-up to resolu tion is recommended. Given the nodular appearance, a follow-up chest CT in 3 months time is also sebastián mmended for reassessment. 4. There is no pleural effusion or pneumothorax. 5. There is no evidence of solid organ injury in the abdomen or pelvis on this unenhanced examination . 6. Cardiomegaly and emphysema. 7. There is no evidence of fracture or malalignment involving the thoracic spine. 8. There is no evidence of fracture or malalignment involving the lumbar spine. 9. Bladder distention 10. There is an approximately 10 cm segment of underdistention versus mildly thick-walled ascending c olon. Underdistention is favored an clinical correlation will be required. If warranted this could be further assessed with endoscopy on a nonemergent basis. 11. Additional findings as above. ACT 112: Negative or not required by law. Electronically signed by: Fransisco Jarrett M.D. 11/20/2020 3:24 PM
[2020-11-20 15:43] LABS: Base Excess VBG -3.5 mEq/L; Oxygen Saturation VBG 72.6 %; pH VBG 7.26 (7.36-7.41)
[2020-11-20 16:53] LABS: Appearance Urine Clear (Clear); Bacteria Urine Automated Negative (Negative); Bilirubin Urine Negative (Negative); Blood Urine 3+ (Negative); Color Urine Yellow; Epithelial Cell Urine Auto >30 /lpf (0-5); Glucose Urine UA 3+ (Negative); Ketones Urine Negative (Negative); Leukocyte Esterase Urine Negative (Negative); Nitrite Urine Negative (Negative); Protein Urine 1+ (Negative); RBC Urine Automated 0-4 /hpf (0-4); Specific Gravity Urine 1.019 (1.000-1.030); Urobilinogen Urine Negative (Negative)
[2020-11-20] MEDS ORDERED: CARBOHYDRATES FOR HYPOGLYCEMIA PO PRN (17:55)
[2020-11-20] MEDS ORDERED: GLUCOSE 10 TABS/TUBE PO PRN (17:55)
[2020-11-20] MEDS ORDERED: DEXTROSE 50% 50 ML SYRINGE IV PRN (17:55)
[2020-11-20] MEDS ORDERED: INSULIN ASPART 100 UNITS/ML 3 ML PEN SC SCH (17:55)
[2020-11-20] MEDS ORDERED: GLUCAGON FOR INJ 1 MG VIAL SQ PRN (17:55)
[2020-11-20] MEDS ORDERED: GLUCOSE 40% GEL 15 GM TUBE PO PRN (17:55)
[2020-11-20] MEDS: SODIUM CHLORIDE 0.9% 1000ML 1,000 ML IV SCH (18:42)
[2020-11-20] MEDS ORDERED: INSULIN HUMAN REGULAR PER UNIT 10 UNITS in SYRINGE 9.9 ML IV ONE (19:00)
[2020-11-20] MEDS ORDERED: INSULIN HUMAN REGULAR PER UNIT 10 UNITS in SYRINGE 0 ML IV STA (20:44)
[2020-11-20] MEDS ORDERED: PHARMACY GLYCEMIC MGMT CONSULT PRN (20:51)
[2020-11-20] MEDS ORDERED: DULoxetine HCL 60 MG CAP PO SCH (21:00)
[2020-11-20] MEDS ORDERED: MAGNESIUM OXIDE 400 MG TAB PO SCH (21:00)
[2020-11-20] MEDS ORDERED: INSULIN GLARGINE SOLOSTAR 100 UNITS/ML 3 ML PEN SC SCH (21:00)
[2020-11-20] MEDS ORDERED: ISOSORBIDE MONO EXTENDED REL 30 MG TABCR PO SCH (21:00)
[2020-11-20] MEDS: PANTOprazole 40 MG TAB PO SCH (21:22)
[2020-11-20] MEDS: PIPERACILLIN/TAZOBACTAM 3.375 GM in DEXTROSE 5% 100 ML IV SCH (21:22)
[2020-11-20] MEDS: HEPARIN SOD 5,000 UNIT/0.5 ML VIAL SQ SCH (21:24)
[2020-11-20] MEDS ORDERED: INSULIN REGULAR 250 UNITS in SODIUM CHLORIDE 0.9% 247.5 ML IV SCH (21:30)
[2020-11-20 21:51] LABS: BUN Creatinine Ratio 26.5 (10-20); Calcium 8.4 mg/dl (8.5-10.1); Creatinine Clr Calc Pharmacy 35.6 ml/min; Est GFR (African American) 33.3 ml/min; Est GFR (Non-African American) 28.7 ml/min; Potassium 5.5 mmol/L (3.5-5.1)
[2020-11-20] MEDS: INSULIN ASPART 100 UNITS/ML 3 ML PEN SC SCH (21:57)
[2020-11-21] MEDS: SODIUM CHLORIDE 0.9% 1000ML 1,000 ML IV SCH ×2 (02:48→10:47)
[2020-11-21] MEDS: PIPERACILLIN/TAZOBACTAM 3.375 GM in DEXTROSE 5% 100 ML IV SCH ×2 (04:34→13:23)
[2020-11-21] MEDS ORDERED: INSULIN GLARGINE SOLOSTAR 100 UNITS/ML 3 ML PEN SC SCH (08:00)
--- NOTE | 2020-11-21 08:29 | Hospitalist Progress Note ---
Date of Service November 21, 2020 Assessment & Plan (1) Altered mental status: Plan: Laura Link is a 60yo F with a PMHx of CAD, HLD, chronic back pain with chronic narcotic tx and implanted back stimulator, insulin depenent DM2, GERD who presents to the ER due to increased somnolence and repeatedly falling asleep in public. By report she has a hx of chronic back pain with stimulator and on home morphine. She was given narcan and placed on a narcan drip in the ER with improvement in her somnolence. toxic encephalopathy 2/2 Accidental Narcotic Overdose +/- metabolic encephalopathy of aspiration pneumonia, also abnormal urine on presentatioin on Narcan dripMorphine, gabapentin held doses as noted under back pain - CT-H: There is no hemorrhage, mass effect, or evidence of acute territorial ischemia by CT criteria. Paranasal sinus disease. Small left frontal scalp contusion. - CT-Spine: There is no evidence of fracture or subluxation involving the cervical spine.There is no evidence of fracture or malalignment involving the thoracic spine. There is no evidence of fracture or malalignment involving the lumbar spine. VBG with respiratory acidosis. NIPPV placed Gabapentin level pending Hyperglycemia Ammonia wnl, no signs of liver disease on CT, AST elevated Urine tox screen positive for opiates, screen otherwise negative pending confirmatory send out Continue Narcan drip, titrate for respiration protocol. Continue to monitor end-tidal CO2 We will reassess patient for narcotic withdrawal and starting reduced dose of opioids as clinical/cognitive status improves. Given TDD of greater than 50 morphine equivalents daily anticipate baseline tolerance/dependence P.o. meds have been continued 11/21, if improved mentation and safe swallow prior to given. Aspiration precautions (2) CAD (coronary artery disease): Plan: CAD- Lisinopril held for BRIGITTE - Continue Metoprolol succinate 50mg qAM - ASA 81mg daily - Continue isosorbide mononitrate 30mg PO qHS Continue statin (3) Multifocal pneumonia: Plan: ?Aspiration Pneumonia remains on zosyn, ( was given Levaquin in ER) - COVID negative, afebrile - CXR: There is bibasilar airspace consolidation, right greater than left. - CT-C: There is multifocal patchy/nodular airspace consolidation as detailed above, typical in appearance for multifocal pneumonia. There is no acute posttraumatic intrathoracic abnormality. Clinical correlation will be required and radiographic follow-up to resolution is recommended. Given the nodular appearance, a follow-up chest CT in 3 months time is also recommended (4) Chronic pain: Plan: Chronic Back Pain w/ Implantable Stimulator - TRAPPER ANIMAL pt takes Morphine ER 15mg 1 tab AM and 2 tabs PM with an additional Morphine 15mg IR 1-2 tabs daily. No benzodiazepines. -Patient somnolent on exam, unable to assess pain at time of HPI - Continue TRAPPER ANIMAL duloxetine 60mg qHS -Hold gabapentin 800mg PO TID (5) GERD (gastroesophageal reflux disease): Plan: GERD - Protonix 40mg BID TRAPPER ANIMAL (6) Type 2 diabetes mellitus with insulin therapy: Plan: DM2- Hold home glimepiride. Pt on SSI aspart TRAPPER ANIMAL. Converted to weight based basal-bolus as below - Basal-bolus, lantus 9u BID, CF 45, Ratio 16 -glycemic management (7) Hyperkalemia: Plan: Hyperkalemia - Insulin regular 10 units IV given for hyperglycemia - NSS 1L bolus given in ER (8) Elevated AST (SGOT): Plan: Elevated AST - CT-Ab/P:There is no evidence of solid organ injury in the abdomen or pelvis on this unenhanced examination. Bladder distention. There is an approximately 10 cm segment of underdistention versus mildly thick-walled ascending colon. Underdistention is favored an clinical correlation will be required. If warranted this could be further assessed with endoscopy on a nonemergent basis. - EtoH negative on admit Plan: DVT PPx: Heparin SQ Q12 Diet: DM/HH once able to swallow safetly. NPO on admit for AMS Dispo: PCU CODE STATUS: Full Code, pt assesnts but limited by sedation on HPI. Unable to reach family members for collateral at time of admission. Admission and Anticipated Discharge Date Admission Date: November 20, 2020 Results & Data Results & Data ([facility]) Vital Signs (Past 12 Hours) Vital Signs Temp Pulse Pulse Resp BP Pulse Ox 11/21/20 07:53 97.9 F 96 H 18 175/83 H 92 11/21/20 05:08 98.1 F 84 18 184/92 H 91 11/21/20 00:29 92 H 11/20/20 22:57 98.2 F 91 H 16 131/81 94 PG Care Time/CCT Total # of Minutes Spent Total Time Spent with Patient: Total time spent is greater than 50% in coordination of care (as documented) at patient's floor/unit and/or counseling patient: Coding Diagnoses Altered mental status R41.82 CAD (coronary artery disease) I25.10 Multifocal pneumonia J18.9 Chronic pain G89.29 GERD (gastroesophageal reflux disease) K21.9 Type 2 diabetes mellitus with insulin therapy E11.9; Z79.4 Hyperkalemia E87.5 Elevated AST (SGOT) R74.01
[2020-11-21 08:37] LABS: Basophils # (auto) 0.01 K/uL (0-0.2); Basophils % (auto) 0.1 %; Hematocrit (blood only) 41.7 % (37-47); Hemoglobin 13.6 g/dL (12.0-16.0); Immature Granulocytes # (auto) 0.08 K/uL (0.00-0.02); Immature Granulocytes % (auto) 0.5 %; Lymphocytes # (auto) 0.81 K/uL (1.2-3.4); Lymphocytes % (auto) 4.7 %; Mean Corpuscular Hemoglobin 29.7 pg (25-34); Mean Corpuscular Hgb Conc 32.6 g/dL (32-36); Mean Platelet Volume 11.4 fL (7.4-10.4); Monocytes # (auto) 0.84 K/uL (0.11-0.59); Monocytes % (auto) 4.9 %; Neutrophils # (auto) 15.52 K/uL (1.4-6.5); Neutrophils % (auto) 89.8 %; Platelet Count 253 K/uL (130-400); RDW Coefficient of Variation 15.2 % (11.5-14.5); RDW Standard Deviation 50.4 fL (36.4-46.3); Red Blood Count 4.58 M/uL (4.2-5.4); White Blood Count 17.26 K/uL (4.8-10.8)
[2020-11-21] MEDS: INSULIN ASPART 100 UNITS/ML 3 ML PEN SC SCH ×3 (08:38→17:03)
[2020-11-21] MEDS: PANTOprazole 40 MG TAB PO SCH (08:41)
[2020-11-21] MEDS: HEPARIN SOD 5,000 UNIT/0.5 ML VIAL SQ SCH (08:41)
[2020-11-21] MEDS ORDERED: ATORVASTATIN 40 MG TAB PO SCH (09:00)
[2020-11-21] MEDS ORDERED: METOPROLOL SUCC 50MG EXT REL TAB PO SCH (09:00)
[2020-11-21] MEDS ORDERED: POTASSIUM CHLORIDE 10 MEQ TABCR PO SCH (09:00)
[2020-11-21] MEDS ORDERED: MoRPHine SULFATE 2 MG/ML CARP IV PRN (09:02)
[2020-11-21 09:27] LABS: BUN Creatinine Ratio 27.2 (10-20); Calcium 8.3 mg/dl (8.5-10.1); Creatinine Clr Calc Pharmacy 50.8 ml/min; Est GFR (African American) 51.3 ml/min; Est GFR (Non-African American) 44.2 ml/min; Potassium 4.4 mmol/L (3.5-5.1)
[2020-11-21] MEDS ORDERED: MoRPHine SULFATE CR 15 MG TABCR PO SCH (09:30)
--- NOTE | 2020-11-21 09:38 | Pharmacy Report ---
Pharmacy Glycemic Short Note 2 - Date of Service November 21, 2020 - Glycemic Short BSG Results (Last 24 hours): 11/20/20 11/20/20 11/20/20 11:58 18:08 18:18 Glucose 412 H* 498 H* POC Glucose 467 H* 11/20/20 11/20/20 11/20/20 20:40 22:58 23:58 Glucose POC Glucose 427 H* 387 H* 335 H* 11/21/20 11/21/20 11/21/20 00:55 01:57 02:51 Glucose POC Glucose 290 H 227 H 164 H 11/21/20 11/21/20 11/21/20 04:06 05:04 06:01 Glucose POC Glucose 138 H 118 H 114 H 11/21/20 11/21/20 11/21/20 07:04 07:49 08:18 Glucose 117 H POC Glucose 107 H 117 H 11/21/20 09:18 Glucose POC Glucose 125 H OUTPATIENT ANTIDIABETIC REGIMEN: * Novolog sliding scale * Glimepiride 4 mg PO BID * HbA1c: ordered and pending ASSESSMENT: * RH is a 60 year old female who presented to ED due to increased somnolence and repeatedly falling asleep in public * Patient does have implanted back stimulator and takes chronic opioids * BSG on presentation of 412 mg/dL, received dose of Solu-medrol 125 mg IV x 1 in ED * Insulin infusion initiated at time of admission yesterday, BSGs trended down nicely * BSGs of 107, 117, and 125 mg/dL this morning with drip at 1 unit/hr - ordered 0.2 unit/kg dose of Lantus and discontinued infusion PLAN FOR INPATIENT GLYCEMIC CONTROL: * Hold outpatient oral diabetes medications * Basal insulin * Lantus 18 units SC daily (0.2 unit/kg) * Bolus insulin * NovoLog per scale ACHS or Q6hrs while NPO * Goal Range: Low 110 mg/dL - High 140 mg/dL * Correction Factor: 25 mg/dL/unit * Nutritional / Prandial insulin per carb ratio of 1 unit per 9 grams CHO consumed * 0200 check this evening with same parameters PLAN FOR DISCHARGE: * tbd - await HbA1c
[2020-11-21] MEDS: GABAPENTIN 800 MG TAB PO SCH ×2 (10:10→15:36)
[2020-11-21] MEDS ORDERED: LINEZOLID CONSULT ACTIVE PRN (14:34)
[2020-11-21 14:35] LABS: Estimated Average Glucose 266 mg/dl; Hemoglobin A1C 10.9 % (4.5-5.6)
[2020-11-21] MEDS ORDERED: DOXYCYCLINE HYCLATE 100 MG CAP PO STA (15:11)
--- NOTE | 2020-11-21 15:56 | Electrocardiogram Report ---
Test Reason : Blood Pressure : / mmHG Vent. Rate : 086 BPM Atrial Rate : 086 BPM P-R Int : 148 ms QRS Dur : 148 ms QT Int : 434 ms P-R-T Axes : 061 270 044 degrees QTc Int : 519 ms Normal sinus rhythm Right bundle branch block Abnormal ECG When compared with ECG of 20-NOV-2020 11:34, (unconfirmed) No significant change Confirmed by Kt Edmonds ([id number]) on 11/21/2020 3:55:56 PM Referred By: REFERRED SELF Confirmed By:Kt Edmonds
[2020-11-21] MEDS ORDERED: LINEZOLID 600 MG TAB PO ONE (16:00)
[2020-11-21 16:38] VITALS: BP 184/91; PULSE 95; TEMP 98.4; O2SAT 94
--- NOTE | 2020-11-21 18:19 | Discharge Summary ---
Date of Service November 21, 2020 Admission HPI Per Admitting Provider Laura Link is a 60yo F with a PMHx of CAD, HLD, chronic back pain with chronic narcotic tx and implanted back stimulator, insulin depenent DM2, GERD who presents to the ER due to increased somnolence and repeatedly falling asleep in public. Pt is from out of visiting relatives. She has a hx of chronic back pain with stimulator and on home morphine. She was given narcan and placed on a narcan drip in the ER with improvement in her somnolence. Per pharmacy and external records review: [employer] pt takes Morphine ER 15mg 1 tab AM and 2 tabs PM with an additional Morphine 15mg IR 1-2 tabs daily. No benzodiazepines. Pt also on gabapentin 800mg TID PO and duloxetine 60mg qHS. History extremely limited by sedation/cognitive status Patient is seen at the bedside, has had a waxing and waning cognitive status while in the emergency department. At time of provider assessment patient opens eyes transiently to vigorous shaking and sternal rub, gives grunting answers to questions and is able to verbalize her son is "Ludwin "before falling back asleep. Respirations 19, normal end-tidal CO2. She is on a Narcan drip titrated to respiration. Patient was not able to give phone number for her son Ludwin. When asked if it was okay to call her sister who is listed as her primary contact she replies "okay "before falling at sleep, sister patties phone rang without answer, no voicemail available. By report patient is from [place] and is visiting friends/family. She was reportedly falling asleep on benches with multiple falls causing her to be brought to the emergency department by emergency medical services. No family/friends at bedside for collateral. While in the emergency department she was given Narcan with improved mentation and then placed on a Narcan drip titrated to respiratory status. She received insulin for hyperglycemia, and a fluid bolus for elevated potassium. CT of the entire spine, head, abdomen and pelvis, and head were all obtained. Results reviewed in assessment and plan, no signs of fracture, intracranial bleed, or solid organ injury. Evidence on CT of multifocal pneumonia. Principal Diagnosis Right lower lobe pneumonia Gram-positive blood cultures Metabolic encephalopathy since resolved Patient request for early discharge Discharge Exam The patient appeared well he ambulated without hypoxia Vital signs as documented. Lungs are clear to auscultation and appear unlabored extra attention is paid to the right lower lobe and she had no change in breath sounds in that area Cardiac exam, Rhythm is regular.. No murmurs, rubs or gallops. Abdominal exam reveals normal bowel sounds, soft non tender, no masses Extremities are nonedematous and both pedal pulses are normal. Neurologic exam is alert and oriented, no focal loss of strength or sensation seems clear mentation at the time she left the hospital Skin is without bruises or rashes Psychologically is without concerns for anxiety or depression. Discharge Data Allergies Allergy/AdvReac Type Severity Reaction Status Date / Time Iodinated Contrast Media Allergy Severe shortness Unverified 11/20/20 13:43 of breath pistachio nut Allergy Severe shortness Unverified 11/20/20 13:43 of breath clarithromycin [From Biaxin] Allergy Verified 11/21/20 14:31 Consultations 11/20/20 15:44 ED Decision to Admit Stat 11/21/20 15:16 Consult Health Information Management Routine Ordered Studies 11/20/20 11:26 CT cervical spine wo con Stat CT head/brain wo con Stat CT lumbar spine wo con Stat CT thoracic spine wo con Stat 11/20/20 13:45 CT abd pelvis wo con Stat CT chest diagnostic wo con Stat Hospital Course (1) Altered mental status: Laura Link is a 60yo F with a PMHx of CAD, HLD, chronic back pain with chronic narcotic tx and implanted back stimulator, insulin depenent DM2, GERD who presents to the ER due to increased somnolence and repeatedly falling asleep in public. By report she has a hx of chronic back pain with stimulator and on home morphine. She was given narcan and placed on a narcan drip in the ER with improvement in her somnolence. Altered Mental Status/Somnolence 2/2 Accidental Narcotic Overdose +/- metabolic encephalopathy pneumonia right lower lobe with concern for gram-positive blood culture associated with pneumonia Patient admitted to hospital with reports of multiple falls, falling asleep on benches. H&P limited by extreme somnolence and reduced negative status during exam - CT-H: There is no hemorrhage, mass effect, or evidence of acute territorial ischemia by CT criteria. Paranasal sinus disease. Small left frontal scalp contusion. - CT-Spine: There is no evidence of fracture or subluxation involving the cervical spine.There is no evidence of fracture or malalignment involving the thoracic spine. There is no evidence of fracture or malalignment involving the lumbar spine. Ammonia not elevated, no signs of liver disease on CT, AST elevated Urine tox screen positive for opiates, he freely admits to taking daily opiates for chronic back pain Patient has blood cultures positive seemingly not MRSA or staph aureus she is got an infiltrate in her right lower lobe seen on plain film and chest x-ray she states she was on Augmentin as an outpatient and I confirmed this with her pharmacy initially prescribed November 16 patient states she is a few pills left from the course I conveyed to the patient that it would be in her best interest to stay for continued treatment for possible bacteremia associate with pneumonia. The patient is from [place] and only came into town to go to the local fair. The patient states she is leaving no matter what. The patient has stable vital signs at the time she left. She will be prescribed doxycycline but with alvarez warning to follow-up with her family physician and consider representing to [facility] if she has any decrease in mental abilities or physical vital sign changes. (2) CAD (coronary artery disease): CAD Patient return to metoprolol lisinopril plus ASA 81mg daily - Continue isosorbide mononitrate 30mg PO qHS Continue statin (3) Multifocal pneumonia: This is been present for a few weeks prior to admission because of her prolonged smoking concern for a Barton C and as mentioned below follow-up is strongly recommended - Leukocytosis to 18 on admit - COVID negative, afebrile - CXR: There is bibasilar airspace consolidation, right greater than left. Correlate clinically for evidence of pneumonia/aspiration pneumonitis. Radiographic follow-up to resolution is recommended. - CT-C: There is multifocal patchy/nodular airspace consolidation as detailed above, typical in appearance for multifocal pneumonia. There is no acute posttraumatic intrathoracic abnormality. Clinical correlation will be required and radiographic follow-up to resolution is recommended. Given the nodular appearance, a follow-up chest CT in 3 months time is also recommended for reassessment.There is no pleural effusion or pneumothorax.Cardiomegaly and emphysema. Patient did have gram-positive blood culture with PCR testing being negative for MRSA or staph aureus. (4) Chronic pain: Chronic Back Pain w/ Implantable Stimulator - [employer] pt takes Morphine ER 15mg 1 tab AM and 2 tabs PM with an additional Morphine 15mg IR 1-2 tabs daily. No benzodiazepines. Patient wishes to return home on her typical regimen (5) GERD (gastroesophageal reflux disease): GERD - Protonix 40mg BID JOIN[employer] (6) Type 2 diabetes mellitus with insulin therapy: DM2 - Hyperglycemic to 412 on admit, patient fairly admits to drinking lemonade at the [facility] fair Will resume home insulin regime returning to [place] (7) Hyperkalemia: Hyperkalemia Resolved (8) Elevated AST (SGOT): Elevated AST - ALT normal - AlkPhos normal - CT-Ab/P:There is no evidence of solid organ injury in the abdomen or pelvis on this unenhanced examination. Bladder distention. There is an approximately 10 cm segment of underdistention versus mildly thick-walled ascending colon. Underdistention is favored an clinical correlation will be required. If warranted this could be further assessed with endoscopy on a nonemergent basis. - EtoH negative on admit Patient demanded to leave our facility she understands the risks she is taking and understands the risk of incomplete treatment and work-up regarding her lung infiltrate mass and blood cultures Total Time Total Time Spent Total Time Spent (In Minutes): It required greater than 30 minutes to prepare this patient for discharge Discharge Plan Discharge Items Patient Disposition: Home - Self-Care Reason For Visit: AMS/SOMNOLENCE, SUSPECTED NARCOSIS Discharge Diagnosis: right low lobe pneumonia bacteria in blood stream period of unresponsiveness Activity: Per Instructions section Activity Comment: slowly increase activity Non-emergency contact: Primary Care Provider Call non-emergency contact if: you have any medication questions and your symptoms worsen Follow-up/Referrals: PCP,NO [Primary Care Provider] - Diet: Carb Consistent or DM2 Addtl Attending Provider Instructions: on your admission you have a right lower lung infection (pneumonia) and you have one blood test showing bacteria, however when you left we had not had time to finalize the analysis, but we do know its not mrsa, please follow up with your family doctor this week. Since you have been on Augmentin since 11/09/20 per your pharmacy, it makes antibiotic choices more challenging, we will use Doxycycline, and recommend repeat CT chest imaging coordinated by your family doctor for follow up, given you smoking history. Please report immediately to the hospital if you feel ill in any way Pending Studies at Discharge: Yes Stand-Alone Forms: My [facility], Smoking Cessation Medications and DC Order Prescriptions: New doxycycline hyclate 100 mg capsule 100 mg PO BID 14 Days Qty: 28 RF: 0 Continued atorvastatin [Lipitor] 80 mg Tablet 80 mg PO QAM RF: 0 potassium chloride 10 mEq Capsule, Extended Release 10 meq PO QAM RF: 0 torsemide 20 mg Tablet 20 mg PO DAILY PRN (Reason: Edema) RF: 0 metoprolol succinate [Toprol XL] 50 mg Tablet Extended Release 24 Hr 50 mg PO QAM RF: 0 isosorbide mononitrate 30 mg Tablet Extended Release 24 Hr 30 mg PO HS RF: 0 aspirin [Aspirin Low Dose] 81 mg Tablet,Delayed Release (Dr/Ec) 81 mg PO QAM RF: 0 gabapentin [Neurontin] 800 mg Tablet 800 mg PO TID RF: 0 pantoprazole [Protonix] 40 mg Tablet,Delayed Release (Dr/Ec) 40 mg PO BID RF: 0 glimepiride [Amaryl] 4 mg Tablet 4 mg PO BID RF: 0 morphine [MS Contin] 15 mg Tablet Extended Release See Rx Instructions .ROUTE .COMPLEX RF: 0 ergocalciferol (vitamin D2) [Vitamin D2] 1,250 mcg (50,000 unit) Capsule 1,250 mcg PO WK RF: 0 morphine 15 mg Tablet See Rx Instructions .ROUTE .COMPLEX RF: 0 lisinopril [Zestril] 2.5 mg Tablet 2.5 mg PO HS RF: 0 insulin aspart U-100 [Novolog PenFill U-100 Insulin] 100 unit/mL Cartridge 1 sliding scale dose SUBCUT USEASDIRECTD RF: 0 duloxetine [Cymbalta] 60 mg Capsule,Delayed Release(Dr/Ec) 60 mg PO HS RF: 0 magnesium oxide 400 mg magnesium Tablet 400 mg PO HS RF: 0 Discharge Orders: Discharge Order (Routine); Ordered 11/21/20 Ordered By: River Blevins Admission Data Admit Date/Time: 11/20/20 16:09 Attending Provider: River Blevins Admit Provider: Kareem Birmingham Primary Care Provider: PCP,NO Other Providers: Kareem Birmingham Other Interventions: Discharge Summary Assessment (RN) Last Done: 11/21/20 16:23 Coding Level of Care Code D/C DAY MANAGEMENT >30 MINS Diagnoses Altered mental status R41.82 CAD (coronary artery disease) I25.10 Multifocal pneumonia J18.9 Chronic pain G89.29 GERD (gastroesophageal reflux disease) K21.9 Type 2 diabetes mellitus with insulin therapy E11.9; Z79.4 Hyperkalemia E87.5 Elevated AST (SGOT) R74.01
[2020-11-22] MEDS ORDERED: INSULIN ASPART 100 UNITS/ML 3 ML PEN SC SCH (02:00)
--- NOTE | 2020-11-23 09:44 | Electrocardiogram Report ---
Test Reason : Blood Pressure : / mmHG Vent. Rate : 094 BPM Atrial Rate : 094 BPM P-R Int : 000 ms QRS Dur : 142 ms QT Int : 428 ms P-R-T Axes : 077 -88 044 degrees QTc Int : 535 ms Poor data quality, interpretation may be adversely affected Sinus rhythm Premature atrial complexes Right bundle branch block Abnormal ECG No previous ECGs available Confirmed by Kt Edmonds ([id number]) on 11/23/2020 9:44:33 AM Referred By: Confirmed By:Kt Edmonds
[2020-11-23 09:52] LABS: Codeine Urine NEGATIVE ng/mL (<50); Hydrocodone Urine NEGATIVE ng/mL (<50); Hydromor Urine 108 ng/mL (<50); Morphine Urine >10000 ng/mL (<50); Norhydrocodone Conf Ur NEGATIVE ng/mL (<50); Noroxycodone Urine NEGATIVE ng/mL (<50); Oxycodone Urine NEGATIVE ng/mL (<50); Oxymorph Urine NEGATIVE ng/mL (<50)
--- NOTE | 2020-12-16 08:33 | Coding Query ---
CODING QUERY To promote full compliance with coding requirements relating to patient care, provider participation is requested in all cases of special events director uncertainty. Please assist us with the question(s) below: Coding Question(s): Discharge documentation states, "Altered Mental status/somnolence 2/2 Accidental Narcotic Overdose +/- metabolic encephalopathy pneumonia right lower lobe with concern for gram-positive blood culture associated with pneumonia." Please clarify how the plus/minus (+/-) in this statement is supposed to be read. both narcotic overdose and infection caused the metabolic encephalopathy equally Physician's Response(s): Thank you Nando Garner Principal Diagnosis: "that condition established after study, to be chiefly responsible for occasioning the admission of the patient to the hospital for care." Co-Existing Principal Diagnosis: "when two or more diagnoses equally meet the criteria for principal diagnosis as determined by the circumstances of admission, diagnostic work up, and/or therapy provided, and the Alphabetic Index, Tabular List, or another coding guideline does not provide sequencing direction, any one of the diagnoses may be sequenced first." "When the physician has documented what appears to be a current diagnosis in the body of the record, but has not included the diagnosis in the final diagnostic statement, the physician should be asked whether the diagnosis should be added." (Source Coding Clinic 2 QTR90. p3-4) [email or web address]
== END 2020-11-21 17:33 | disposition home or self-care (01) | DRG 193 ==
LOC: ED 10:49 → 2S 16:09 → SUATTDRO 16:09 → INTOOBSV 16:09 → 2S 17:20